=== PATIENT | male | born 1965 | race Caucasian/White ===

== ENCOUNTER 2017-08-22 20:40 | Inpatient (IN) ==
[2017-08-22] MEDS ORDERED: ACETAMINOPHEN 325 MG TABLET PO PRN (23:00)
[2017-08-22] MEDS ORDERED: GLUCAGON 1 MG VIAL IM PRN (23:36)
[2017-08-22] MEDS ORDERED: DEXTROSE 50% 25 GM/50 ML VIAL IV PRN (23:36)
[2017-08-22] MEDS ORDERED: MORPHINE 2 MG/1 ML SYRINGE IV PRN (23:36)
[2017-08-22] MEDS ORDERED: ONDANSETRON 4 MG/2 ML VIAL IV PRN (23:36)
[2017-08-22] MEDS ORDERED: NICOTINE 21 MG/24 HR PATCH TRANSDERM PRN (23:36)
[2017-08-22] MEDS ORDERED: ZALEPLON 5 MG CAPSULE PO PRN (23:36)
[2017-08-22] MEDS ORDERED: LEVOFLOXACIN INJ 750 MG in PREMIX 1 EACH IV SCH (23:45)
[2017-08-22] MEDS ORDERED: ALBUTEROL/IPRATROPIUM 3 ML NEB RESP TX PRN (23:46)
[2017-08-23] MEDS: SODIUM CHLORIDE 0.45% 1,000 ML IV SCH ×2 (00:12→15:07)
[2017-08-23 01:22] LABS: Basophils # 0.1 10*3/uL (0.0-0.2); Basophils % 0.6 % (0.0-0.8); Eosinophils # 0.2 10*3/uL (0.0-0.87); Eosinophils % 0.9 % (0.00-10.9); Hematocrit 33.9 VOL% (42.0-52.0); Hemoglobin 10.7 GM/DL (14.0-18.0); Immature Granulocytes % 0.6 %; Lymphocytes # 4.8 10*3/uL (1.4-4.0); Lymphocytes % 27.9 % (21.2-54.2); Mean Corpuscular HGB Conc 31.6 GM/DL (32-36); Mean Corpuscular Hemoglobin 27 PG (27-34); Mean Corpuscular Volume 85.8 FL (87-102); Mean Platelet Volume 10.4 FL (9.6-12.0); Monocytes # 2.9 10*3/uL (0.11-0.8); Monocytes % 16.7 % (1.7-12.7); NRBC # 0.15 10*3/uL; Neutrophils # 9.1 10*3/uL (1.4-7.4); Neutrophils % 53.3 % (38.7-73.9); Platelet Count 454 T/CUMM (130-400); Red Blood Count 3.95 MC/CUMM (3.8-5.5); Red Cell Distribution Width 17.3 % (9.3-17.3); White Blood Count 17.1 T/CUMM (4-12)
[2017-08-23 01:46] LABS: Albumin 2.8 G/DL (3.4-5.0); Calcium 8.1 MG/DL (8.5-10.1); Osmolality,Calculated 282.1 MOS/KG (273-304); Potassium 3.9 MMOL/L (3.5-5.1); Total Protein 7.2 G/DL (6.4-8.3)
[2017-08-23] MEDS: ALBUTEROL/IPRATROPIUM 3 ML NEB RESP TX SCH ×6 (02:12→23:40)
[2017-08-23 06:40] LABS: Lymphocytes 18 % (20-55); Platelet Estimate Increased; Segmented Neutrophils 72 % (50-85); Total Cells Counted 100
[2017-08-23 09:48] LABS: ABG Base Excess 4.7 MMOL/L (-2.5-2.5); ABG HCO3 28.6 MMOL/L (20-26); ABG Oxygen Saturation 92.5 % (95-100); ABG PCO2 58.6 MM HG (35-48); ABG PH 7.344 (7.35-7.45); ABG PO2 66.1 MM HG (80-95); ABG TCO2 29.1 MMOL/L (23-27)
[2017-08-23] MEDS: PARoxetine 20 MG TABLET PO SCH (10:11)
[2017-08-23] MEDS: amLODIPine 5 MG TABLET PO SCH (10:12)
[2017-08-23] MEDS: AMIODARONE 200 MG TABLET PO SCH ×2 (10:12→21:24)
[2017-08-23] MEDS: ASPIRIN EC 81 MG TABLET PO SCH (10:12)
[2017-08-23] MEDS: PIOGLITAZONE 15 MG TABLET PO SCH (10:12)
[2017-08-23] MEDS: FUROSEMIDE 40 MG/4 ML VIAL IV SCH (10:13)
[2017-08-23] MEDS: PANTOPRAZOLE 40 MG TABLET PO SCH (10:13)
[2017-08-23] MEDS: INSULIN REGULAR 100 UNIT/ML SUBCUT SCH ×4 (10:13→21:41)
[2017-08-23] MEDS: DOCUSATE SODIUM 100 MG CAPSULE PO SCH ×2 (10:13→21:24)
[2017-08-23] MEDS: METOPROLOL TARTRATE 25 MG TABLET PO SCH ×2 (10:13→21:25)
[2017-08-23] MEDS: BUDESONIDE/FORMOTEROL 160-4.5 INHALER 6 GM INH SCH ×2 (10:13→21:26)
[2017-08-23] MEDS: AZITHROMYCIN INJ 500 MG in SODIUM CHLORIDE 0.9% 250 ML IV SCH (12:37)
[2017-08-23] MEDS: PIPERACILLIN/TAZOBACTAM 3,375 MG in SODIUM CHLORIDE 0.9% 100 ML IV SCH ×2 (15:06→20:50)
[2017-08-23] MEDS: NICOTINE 21 MG/24 HR PATCH TRANSDERM SCH (16:46)
[2017-08-23] MEDS: methylPREDNISolone SOD SUC 40 MG/1 ML VIAL IV SCH (16:47)
[2017-08-23] MEDS: RIVAROXABAN 15 MG TABLET PO SCH (17:29)
[2017-08-23] MEDS: ATORVASTATIN 40 MG TABLET PO SCH (21:25)
[2017-08-24] MEDS: methylPREDNISolone SOD SUC 40 MG/1 ML VIAL IV SCH ×2 (03:26→16:08)
[2017-08-24] MEDS: PIPERACILLIN/TAZOBACTAM 3,375 MG in SODIUM CHLORIDE 0.9% 100 ML IV SCH ×3 (03:27→19:30)
[2017-08-24] MEDS: ALBUTEROL/IPRATROPIUM 3 ML NEB RESP TX SCH ×5 (04:30→20:08)
[2017-08-24 06:53] LABS: Basophils % 0.2 % (0.0-0.8); Hemoglobin 11.2 GM/DL (14.0-18.0); Immature Granulocytes % 0.4 %; Immature Granulocytes Absolute 0.04 #; Lymphocytes # 1.6 10*3/uL (1.4-4.0); Lymphocytes % 17.3 % (21.2-54.2); Mean Corpuscular HGB Conc 30.3 GM/DL (32-36); Mean Corpuscular Hemoglobin 26 PG (27-34); Mean Corpuscular Volume 87.1 FL (87-102); Mean Platelet Volume 10.6 FL (9.6-12.0); Monocytes # 0.6 10*3/uL (0.11-0.8); Monocytes % 6.9 % (1.7-12.7); NRBC # 0.25 10*3/uL; Neutrophils % 75.2 % (38.7-73.9); Platelet Count 478 T/CUMM (130-400); Red Blood Count 4.25 MC/CUMM (3.8-5.5); Red Cell Distribution Width 17.1 % (9.3-17.3); White Blood Count 9.3 T/CUMM (4-12)
[2017-08-24 07:18] LABS: Band Neutrophils 1 % (0-10); Lymphocytes 14 % (20-55); Nucleated Red Blood Cells 3 (0-5); Segmented Neutrophils 77 % (50-85); Total Cells Counted 100
[2017-08-24 07:19] LABS: Giant Platelets Few; Hypochromasia 1+; Ovalocytes Slight; Platelet Estimate Adequate
[2017-08-24 07:35] LABS: Calcium 8.2 MG/DL (8.5-10.1); Osmolality,Calculated 285.4 MOS/KG (273-304); Potassium 4.4 MMOL/L (3.5-5.1)
[2017-08-24] MEDS: PARoxetine 20 MG TABLET PO SCH (09:48)
[2017-08-24] MEDS: AMIODARONE 200 MG TABLET PO SCH ×2 (09:48→20:42)
[2017-08-24] MEDS: ASPIRIN EC 81 MG TABLET PO SCH (09:48)
[2017-08-24] MEDS: FUROSEMIDE 40 MG/4 ML VIAL IV SCH (09:49)
[2017-08-24] MEDS: DOCUSATE SODIUM 100 MG CAPSULE PO SCH ×2 (09:49→20:42)
[2017-08-24] MEDS: PANTOPRAZOLE 40 MG TABLET PO SCH (09:49)
[2017-08-24] MEDS: amLODIPine 5 MG TABLET PO SCH (09:49)
[2017-08-24] MEDS: PIOGLITAZONE 15 MG TABLET PO SCH (09:49)
[2017-08-24] MEDS: METOPROLOL TARTRATE 25 MG TABLET PO SCH ×2 (09:49→20:42)
[2017-08-24] MEDS: BUDESONIDE/FORMOTEROL 160-4.5 INHALER 6 GM INH SCH ×2 (09:50→20:44)
[2017-08-24] MEDS: NICOTINE 21 MG/24 HR PATCH TRANSDERM SCH (10:39)
[2017-08-24] MEDS: INSULIN REGULAR 100 UNIT/ML SUBCUT SCH ×4 (11:10→20:44)
[2017-08-24] MEDS: AZITHROMYCIN INJ 500 MG in SODIUM CHLORIDE 0.9% 250 ML IV SCH (16:06)
[2017-08-24] MEDS: RIVAROXABAN 15 MG TABLET PO SCH (16:08)
[2017-08-24] MEDS: ATORVASTATIN 40 MG TABLET PO SCH (20:42)
[2017-08-25] MEDS: ALBUTEROL/IPRATROPIUM 3 ML NEB RESP TX SCH ×6 (01:09→20:08)
[2017-08-25] MEDS: methylPREDNISolone SOD SUC 40 MG/1 ML VIAL IV SCH (02:15)
[2017-08-25] MEDS: PIPERACILLIN/TAZOBACTAM 3,375 MG in SODIUM CHLORIDE 0.9% 100 ML IV SCH ×3 (02:15→18:04)
[2017-08-25] MEDS: FUROSEMIDE 40 MG/4 ML VIAL IV SCH (09:07)
[2017-08-25] MEDS: INSULIN REGULAR 100 UNIT/ML SUBCUT SCH ×4 (09:07→20:53)
[2017-08-25] MEDS: NICOTINE 21 MG/24 HR PATCH TRANSDERM SCH (09:08)
[2017-08-25] MEDS: AMIODARONE 200 MG TABLET PO SCH ×2 (09:08→20:54)
[2017-08-25] MEDS: PARoxetine 20 MG TABLET PO SCH (09:09)
[2017-08-25] MEDS: PANTOPRAZOLE 40 MG TABLET PO SCH (09:09)
[2017-08-25] MEDS: amLODIPine 5 MG TABLET PO SCH (09:10)
[2017-08-25] MEDS: DOCUSATE SODIUM 100 MG CAPSULE PO SCH ×2 (09:10→20:54)
[2017-08-25] MEDS: BUDESONIDE/FORMOTEROL 160-4.5 INHALER 6 GM INH SCH ×2 (09:10→20:54)
[2017-08-25] MEDS: METOPROLOL TARTRATE 25 MG TABLET PO SCH ×2 (09:10→20:54)
[2017-08-25] MEDS: ASPIRIN EC 81 MG TABLET PO SCH (09:10)
[2017-08-25] MEDS: PIOGLITAZONE 15 MG TABLET PO SCH (09:10)
[2017-08-25] MEDS: AZITHROMYCIN INJ 500 MG in SODIUM CHLORIDE 0.9% 250 ML IV SCH (11:03)
[2017-08-25] MEDS: RIVAROXABAN 15 MG TABLET PO SCH (16:40)
[2017-08-25] MEDS: ATORVASTATIN 40 MG TABLET PO SCH (20:54)
[2017-08-26] MEDS: ALBUTEROL/IPRATROPIUM 3 ML NEB RESP TX SCH ×4 (00:37→11:17)
[2017-08-26] MEDS: PIPERACILLIN/TAZOBACTAM 3,375 MG in SODIUM CHLORIDE 0.9% 100 ML IV SCH ×2 (02:26→10:25)
[2017-08-26 06:13] LABS: Basophils % 0.2 % (0.0-0.8); Eosinophils % 0.1 % (0.00-10.9); Hematocrit 37.3 VOL% (42.0-52.0); Hemoglobin 11.5 GM/DL (14.0-18.0); Immature Granulocytes % 0.8 %; Immature Granulocytes Absolute 0.14 #; Lymphocytes # 4.6 10*3/uL (1.4-4.0); Lymphocytes % 27.7 % (21.2-54.2); Mean Corpuscular HGB Conc 30.8 GM/DL (32-36); Mean Corpuscular Hemoglobin 26 PG (27-34); Mean Corpuscular Volume 84.4 FL (87-102); Mean Platelet Volume 10.5 FL (9.6-12.0); Monocytes # 2.1 10*3/uL (0.11-0.8); Monocytes % 12.6 % (1.7-12.7); Neutrophils # 9.8 10*3/uL (1.4-7.4); Neutrophils % 58.6 % (38.7-73.9); Platelet Count 622 T/CUMM (130-400); Red Blood Count 4.42 MC/CUMM (3.8-5.5); Red Cell Distribution Width 17.2 % (9.3-17.3); White Blood Count 16.7 T/CUMM (4-12)
[2017-08-26 06:47] LABS: Calcium 8.2 MG/DL (8.5-10.1); Osmolality,Calculated 287.4 MOS/KG (273-304); Potassium 4.1 MMOL/L (3.5-5.1)
[2017-08-26] MEDS: INSULIN REGULAR 100 UNIT/ML SUBCUT SCH ×2 (07:48→11:11)
[2017-08-26] MEDS: PARoxetine 20 MG TABLET PO SCH (08:25)
[2017-08-26] MEDS: PIOGLITAZONE 15 MG TABLET PO SCH (08:25)
[2017-08-26] MEDS: ASPIRIN EC 81 MG TABLET PO SCH (08:26)
[2017-08-26] MEDS: PANTOPRAZOLE 40 MG TABLET PO SCH (08:26)
[2017-08-26] MEDS: AMIODARONE 200 MG TABLET PO SCH (08:26)
[2017-08-26] MEDS: amLODIPine 5 MG TABLET PO SCH (08:26)
[2017-08-26] MEDS: METOPROLOL TARTRATE 25 MG TABLET PO SCH (08:26)
[2017-08-26] MEDS: FUROSEMIDE 40 MG/4 ML VIAL IV SCH (08:26)
[2017-08-26] MEDS: NICOTINE 21 MG/24 HR PATCH TRANSDERM SCH (08:27)
[2017-08-26] MEDS: DOCUSATE SODIUM 100 MG CAPSULE PO SCH (08:27)
[2017-08-26] MEDS: BUDESONIDE/FORMOTEROL 160-4.5 INHALER 6 GM INH SCH (08:27)
[2017-08-26] MEDS ORDERED: methylPREDNISolone SOD SUC 40 MG/1 ML VIAL IV SCH (09:00)
[2017-08-26] MEDS: AZITHROMYCIN INJ 500 MG in SODIUM CHLORIDE 0.9% 250 ML IV SCH (09:45)
[2017-08-26 11:20] VITALS: BP 117/75
== END 2017-08-26 13:30 | disposition home or self-care (01) | DRG 193 ==
LOC: SUATTDRO 21:54 → N.5E 21:54
PROVIDERS: ADMIT Family Medicine; ATTEND Hospitalist

== ENCOUNTER 2021-03-26 20:22 | Inpatient (IN) ==
[2021-03-26] MEDS ORDERED: DILTIAZEM 50 MG/10 ML VIAL IV STA (21:15)
[2021-03-26 21:23] LABS: Basophils # 0.1 10*3/uL (0.0-0.2); Basophils % 1.1 % (0.0-0.8); Hemoglobin 13.8 GM/DL (14.0-18.0); Lymphocytes % 31.9 % (21.2-54.2); Mean Platelet Volume 10.1 FL (9.6-12.0); Red Blood Count 5.33 MC/CUMM (3.8-5.5)
[2021-03-26] MEDS ORDERED: FUROSEMIDE 40 MG/4 ML VIAL IV STA (21:46)
[2021-03-26 21:48] LABS: Bilirubin,Total 1.2 MG/DL (0.20-1.00); Calcium 8.1 MG/DL (8.5-10.1); Osmolality,Calculated 274.1 MOS/KG (273-304); Potassium 4.3 MMOL/L (3.5-5.1); Total Protein 7.6 G/DL (6.4-8.2)
[2021-03-26] MEDS ORDERED: ACETAMINOPHEN 500 MG TABLET ONE (21:48)
[2021-03-26 21:49] LABS: Eosinophils # 0.1 10*3/uL (0.0-0.87); Eosinophils % 1.2 % (0.00-10.9); Hematocrit 45.4 VOL% (42.0-52.0); Immature Granulocytes % 0.4 %; Immature Granulocytes Absolute 0.03 #; Lymphocytes # 2.4 10*3/uL (1.4-4.0); Mean Corpuscular HGB Conc 30.4 GM/DL (32-36); Mean Corpuscular Volume 85.2 FL (87-102); Monocytes % 15.2 % (1.7-12.7); NRBC # 0.07 10*3/uL; Neutrophils % 50.2 % (38.7-73.9); Platelet Count 417 T/CUMM (130-400); Red Cell Distribution Width 20.3 % (9.3-17.3); White Blood Count 7.6 T/CUMM (4-12)
[2021-03-26] MEDS ORDERED: ACETAMINOPHEN 500 MG TABLET PO STA (21:52)
[2021-03-26 21:57] LABS: INR 1.2; PT Patient Result 13.7 SECS (10.5-12.0)
[2021-03-26] MEDS ORDERED: ENOXAPARIN 30 MG/0.3 ML SYRINGE SUBCUT STA (23:05)
[2021-03-26] MEDS ORDERED: ENOXAPARIN 100 MG/ML SYRINGE SUBCUT ONE (23:07)
[2021-03-26] MEDS: DILTIAZEM INJ 100 MG in SODIUM CHLORIDE 0.9% 100 ML IV SCH (23:09)
[2021-03-26] MEDS ORDERED: ACETAMINOPHEN 325 MG TABLET PO PRN (23:28)
[2021-03-26] MEDS ORDERED: MAGNESIUM SULF RIDER 2 GM/50 ML PREMIX IV PRN (23:28)
[2021-03-26] MEDS ORDERED: MAGNESIUM SULF RIDER 4 GM/100 ML PREMIX IV PRN (23:28)
[2021-03-26 23:48] LABS: Ferritin 37.2 ng/mL (26-388)
[2021-03-27 02:35] LABS: Bacteria,Urine Occasional /HPF (Few); Bilirubin,Urine Negative (Negative); Blood, Urine Large mg/dL (Negative); Glucose,Urine (UA) Negative (Negative); Ketones,Urine Negative (Negative); Nitrite,Urine Negative (Negative); Protein,Urine 100 MG/DL; RBC,Urine 157 /HPF (0-4); Squamous Epithelial Cell,Urine Occasional /HPF (0-10); Urine Appearance CLOUDY (Clear); Urine Color Amber (Yellow); Urine Specific Gravity 1.033 (1.001-1.035); Urine Urobilinogen < 2.0 EU/DL (0.2-1.0)
[2021-03-27 06:43] LABS: Albumin 2.9 G/DL (3.4-5.0); Calcium 8.5 MG/DL (8.5-10.1); Risk Ratio 6.82; Total Protein 7.8 G/DL (6.4-8.2); VLDL Cholesterol 14.4 MG/DL
[2021-03-27 08:16] LABS: Barbiturates Screen,Urine Negative (Negative); Benzodiazepines Screen,Urine Negative (Negative); Cannabinoid Screen,Urine Negative (Negative); Opiate Screen,Urine Negative (Negative); Phencyclidine Screen,Urine Negative (Negative)
[2021-03-27] MEDS: PANTOPRAZOLE 40 MG TABLET PO SCH (08:42)
[2021-03-27] MEDS: POTASSIUM CHLORIDE 20 MEQ TABLET PO SCH (08:42)
[2021-03-27] MEDS: FUROSEMIDE 40 MG/4 ML VIAL IV SCH ×2 (08:42→16:02)
[2021-03-27] MEDS: ASPIRIN EC 81 MG TABLET PO SCH (08:42)
[2021-03-27] MEDS: PARoxetine 20 MG TABLET PO SCH (08:42)
[2021-03-27] MEDS: METOPROLOL SUCCINATE XL 100 MG TABLET PO SCH (08:48)
[2021-03-27] MEDS ORDERED: METOPROLOL SUCCINATE XL 50 MG TABLET PO SCH (09:00)
[2021-03-27] MEDS: ENOXAPARIN 120 MG/0.8 ML SYRINGE SUBCUT SCH ×2 (10:31→22:47)
[2021-03-27] MEDS: cefTRIAXone 1,000 MG in SODIUM CHLORIDE 0.9% 100 ML IV SCH (10:51)
[2021-03-27] MEDS: AZITHROMYCIN INJ 500 MG in SODIUM CHLORIDE 0.9% 250 ML IV SCH (11:29)
[2021-03-27] MEDS: ONDANSETRON 4 MG/2 ML VIAL IV PRN (12:09)
[2021-03-27] MEDS ORDERED: PROMETHAZINE INJ 12.5 MG in SODIUM CHLORIDE 0.9% 50 ML IV ONE (12:37)
[2021-03-27] MEDS: ATORVASTATIN 40 MG TABLET PO SCH (20:43)
[2021-03-28 05:54] LABS: Calcium 8.6 MG/DL (8.5-10.1); Potassium 4.9 MMOL/L (3.5-5.1)
[2021-03-28 06:03] LABS: Basophils # 0.1 10*3/uL (0.0-0.2); Basophils % 0.6 % (0.0-0.8); Eosinophils % 0.1 % (0.00-10.9); Hematocrit 46.1 VOL% (42.0-52.0); Hemoglobin 14.2 GM/DL (14.0-18.0); Immature Granulocytes % 0.6 %; Immature Granulocytes Absolute 0.05 #; Lymphocytes # 1.7 10*3/uL (1.4-4.0); Lymphocytes % 19.8 % (21.2-54.2); Mean Corpuscular HGB Conc 30.8 GM/DL (32-36); Mean Corpuscular Volume 86.2 FL (87-102); Mean Platelet Volume 10.6 FL (9.6-12.0); Monocytes % 15.5 % (1.7-12.7); NRBC # 0.09 10*3/uL; Neutrophils % 63.4 % (38.7-73.9); Platelet Count 374 T/CUMM (130-400); Red Blood Count 5.35 MC/CUMM (3.8-5.5); White Blood Count 8.5 T/CUMM (4-12)
[2021-03-28] MEDS: ASPIRIN EC 81 MG TABLET PO SCH (08:43)
[2021-03-28] MEDS: METOPROLOL SUCCINATE XL 100 MG TABLET PO SCH (08:43)
[2021-03-28] MEDS: PARoxetine 20 MG TABLET PO SCH (08:43)
[2021-03-28] MEDS: PANTOPRAZOLE 40 MG TABLET PO SCH (08:43)
[2021-03-28] MEDS: POTASSIUM CHLORIDE 20 MEQ TABLET PO SCH (08:43)
[2021-03-28] MEDS: FUROSEMIDE 40 MG/4 ML VIAL IV SCH (08:44)
[2021-03-28] MEDS: AZITHROMYCIN INJ 500 MG in SODIUM CHLORIDE 0.9% 250 ML IV SCH (08:47)
[2021-03-28] MEDS: cefTRIAXone 1,000 MG in SODIUM CHLORIDE 0.9% 100 ML IV SCH (08:48)
[2021-03-28] MEDS: DILTIAZEM INJ 100 MG in SODIUM CHLORIDE 0.9% 100 ML IV SCH (09:44)
[2021-03-28] MEDS: ENOXAPARIN 120 MG/0.8 ML SYRINGE SUBCUT SCH (10:00)
[2021-03-28] MEDS ORDERED: TEMAZEPAM 15 MG CAPSULE PO PRN (12:05)
[2021-03-28] MEDS: RIVAROXABAN 15 MG TABLET PO SCH (16:22)
[2021-03-28] MEDS: ATORVASTATIN 40 MG TABLET PO SCH (20:45)
[2021-03-29 04:42] LABS: Basophils # 0.1 10*3/uL (0.0-0.2); Basophils % 0.9 % (0.0-0.8); Eosinophils % 0.2 % (0.00-10.9); Hematocrit 45.1 VOL% (42.0-52.0); Hemoglobin 14.1 GM/DL (14.0-18.0); Immature Granulocytes % 0.2 %; Immature Granulocytes Absolute 0.02 #; Lymphocytes % 22.5 % (21.2-54.2); Mean Corpuscular HGB Conc 31.3 GM/DL (32-36); Mean Corpuscular Volume 85.4 FL (87-102); Mean Platelet Volume 10.3 FL (9.6-12.0); Monocytes % 15.5 % (1.7-12.7); NRBC # 0.19 10*3/uL; Neutrophils % 60.7 % (38.7-73.9); Platelet Count 342 T/CUMM (130-400); Red Blood Count 5.28 MC/CUMM (3.8-5.5); Red Cell Distribution Width 20.2 % (9.3-17.3); White Blood Count 8.9 T/CUMM (4-12)
[2021-03-29 05:15] LABS: Calcium 8.1 MG/DL (8.5-10.1); Osmolality,Calculated 283.2 MOS/KG (273-304); Potassium 4.9 MMOL/L (3.5-5.1)
[2021-03-29] MEDS: PARoxetine 20 MG TABLET PO SCH (08:20)
[2021-03-29] MEDS: METOPROLOL SUCCINATE XL 100 MG TABLET PO SCH (08:20)
[2021-03-29] MEDS: PANTOPRAZOLE 40 MG TABLET PO SCH (08:20)
[2021-03-29] MEDS: ASPIRIN EC 81 MG TABLET PO SCH (08:20)
[2021-03-29] MEDS: POTASSIUM CHLORIDE 20 MEQ TABLET PO SCH (08:21)
[2021-03-29] MEDS: cefTRIAXone 1,000 MG in SODIUM CHLORIDE 0.9% 100 ML IV SCH (08:27)
[2021-03-29] MEDS: FUROSEMIDE 40 MG/4 ML VIAL IV SCH (08:27)
[2021-03-29] MEDS: AZITHROMYCIN INJ 500 MG in SODIUM CHLORIDE 0.9% 250 ML IV SCH (08:58)
[2021-03-29] MEDS: DOBUTamine 500 MG/250 ML PREMIX IV SCH (10:41)
[2021-03-29] MEDS ORDERED: TEMAZEPAM 7.5 MG CAPSULE PO PRN (11:51)
[2021-03-29] MEDS: ALBUTEROL/IPRATROPIUM 3 ML NEB RESP TX SCH ×2 (14:24→20:24)
[2021-03-29] MEDS: RIVAROXABAN 15 MG TABLET PO SCH (16:37)
[2021-03-29] MEDS: ATORVASTATIN 40 MG TABLET PO SCH (20:38)
[2021-03-30] MEDS: ALBUTEROL/IPRATROPIUM 3 ML NEB RESP TX SCH ×4 (00:19→19:40)
[2021-03-30 05:37] LABS: Basophils # 0.1 10*3/uL (0.0-0.2); Basophils % 0.6 % (0.0-0.8); Eosinophils # 0.1 10*3/uL (0.0-0.87); Eosinophils % 1.5 % (0.00-10.9); Hematocrit 44.2 VOL% (42.0-52.0); Hemoglobin 13.4 GM/DL (14.0-18.0); Immature Granulocytes % 0.4 %; Immature Granulocytes Absolute 0.04 #; Lymphocytes # 1.8 10*3/uL (1.4-4.0); Lymphocytes % 19.9 % (21.2-54.2); Mean Corpuscular HGB Conc 30.3 GM/DL (32-36); Mean Corpuscular Volume 86.3 FL (87-102); Mean Platelet Volume 10.6 FL (9.6-12.0); Monocytes % 14.8 % (1.7-12.7); NRBC # 0.14 10*3/uL; Neutrophils % 62.8 % (38.7-73.9); Platelet Count 328 T/CUMM (130-400); Red Blood Count 5.12 MC/CUMM (3.8-5.5); Red Cell Distribution Width 19.9 % (9.3-17.3); White Blood Count 8.9 T/CUMM (4-12)
[2021-03-30 06:11] LABS: Osmolality,Calculated 285.7 MOS/KG (273-304); Potassium 3.8 MMOL/L (3.5-5.1)
[2021-03-30] MEDS: METOPROLOL SUCCINATE XL 100 MG TABLET PO SCH (09:03)
[2021-03-30] MEDS: ASPIRIN EC 81 MG TABLET PO SCH (09:03)
[2021-03-30] MEDS: PARoxetine 20 MG TABLET PO SCH (09:03)
[2021-03-30] MEDS: FUROSEMIDE 40 MG/4 ML VIAL IV SCH (09:03)
[2021-03-30] MEDS: PANTOPRAZOLE 40 MG TABLET PO SCH (09:03)
[2021-03-30] MEDS: cefTRIAXone 1,000 MG in SODIUM CHLORIDE 0.9% 100 ML IV SCH (09:04)
[2021-03-30] MEDS: DOBUTamine 500 MG/250 ML PREMIX IV SCH ×3 (09:19→23:28)
[2021-03-30] MEDS: ONDANSETRON 4 MG/2 ML VIAL IV PRN (09:19)
[2021-03-30] MEDS: AZITHROMYCIN INJ 500 MG in SODIUM CHLORIDE 0.9% 250 ML IV SCH (10:30)
[2021-03-30] MEDS: metOLazone 5 MG TABLET PO SCH (11:23)
[2021-03-30] MEDS: RIVAROXABAN 15 MG TABLET PO SCH (17:35)
[2021-03-30] MEDS: ATORVASTATIN 40 MG TABLET PO SCH (20:52)
[2021-03-31] MEDS: ALBUTEROL/IPRATROPIUM 3 ML NEB RESP TX SCH ×4 (01:18→19:20)
[2021-03-31 05:23] LABS: Basophils % 0.5 % (0.0-0.8); Eosinophils # 0.2 10*3/uL (0.0-0.87); Eosinophils % 1.7 % (0.00-10.9); Hematocrit 44.2 VOL% (42.0-52.0); Hemoglobin 13.5 GM/DL (14.0-18.0); Immature Granulocytes % 0.2 %; Immature Granulocytes Absolute 0.02 #; Lymphocytes # 1.7 10*3/uL (1.4-4.0); Lymphocytes % 19.4 % (21.2-54.2); Mean Corpuscular HGB Conc 30.5 GM/DL (32-36); Mean Corpuscular Volume 86.7 FL (87-102); Mean Platelet Volume 10.7 FL (9.6-12.0); Monocytes % 17.3 % (1.7-12.7); NRBC # 0.12 10*3/uL; Neutrophils % 60.9 % (38.7-73.9); Platelet Count 310 T/CUMM (130-400); Red Cell Distribution Width 20.1 % (9.3-17.3); White Blood Count 8.8 T/CUMM (4-12)
[2021-03-31 05:45] LABS: Calcium 7.9 MG/DL (8.5-10.1); Osmolality,Calculated 285.4 MOS/KG (273-304); Potassium 3.5 MMOL/L (3.5-5.1)
[2021-03-31 07:05] LABS: Eosinophils 1 % (0-10); Hypochromasia 2+; Lymphocytes 20 % (20-55); Nucleated Red Blood Cells 4 (0-5); Segmented Neutrophils 69 % (50-85); Target Cells Slight; Total Cells Counted 100
[2021-03-31 07:06] LABS: Anisocytosis 1+; Microcytosis 1+; Platelet Estimate Normal; Polychromasia Slight
[2021-03-31] MEDS: ASPIRIN EC 81 MG TABLET PO SCH (09:32)
[2021-03-31] MEDS: FUROSEMIDE 40 MG/4 ML VIAL IV SCH (09:32)
[2021-03-31] MEDS: METOPROLOL SUCCINATE XL 50 MG TABLET PO SCH (09:33)
[2021-03-31] MEDS: ONDANSETRON 4 MG/2 ML VIAL IV PRN ×2 (09:33→20:35)
[2021-03-31] MEDS: PARoxetine 20 MG TABLET PO SCH (09:33)
[2021-03-31] MEDS: PANTOPRAZOLE 40 MG TABLET PO SCH (09:33)
[2021-03-31] MEDS: cefTRIAXone 1,000 MG in SODIUM CHLORIDE 0.9% 100 ML IV SCH (09:33)
[2021-03-31] MEDS: metOLazone 5 MG TABLET PO SCH (09:33)
[2021-03-31] MEDS: AZITHROMYCIN INJ 500 MG in SODIUM CHLORIDE 0.9% 250 ML IV SCH (10:40)
[2021-03-31] MEDS ORDERED: POTASSIUM CHLORIDE 10 MEQ TABLET PO ONE (10:49)
[2021-03-31] MEDS: DOBUTamine 500 MG/250 ML PREMIX IV SCH (13:07)
[2021-03-31] MEDS: RIVAROXABAN 15 MG TABLET PO SCH (17:41)
[2021-03-31] MEDS: ATORVASTATIN 40 MG TABLET PO SCH (20:32)
[2021-03-31] MEDS: ASCORBIC ACID 500 MG TABLET PO SCH (20:32)
[2021-04-01] MEDS: DOBUTamine 500 MG/250 ML PREMIX IV SCH (03:19)
[2021-04-01 05:23] LABS: Basophils # 0.1 10*3/uL (0.0-0.2); Basophils % 0.5 % (0.0-0.8); Eosinophils # 0.3 10*3/uL (0.0-0.87); Eosinophils % 2.6 % (0.00-10.9); Hematocrit 44.9 VOL% (42.0-52.0); Immature Granulocytes % 0.3 %; Immature Granulocytes Absolute 0.03 #; Lymphocytes # 2.3 10*3/uL (1.4-4.0); Lymphocytes % 24.2 % (21.2-54.2); Mean Corpuscular HGB Conc 31.2 GM/DL (32-36); Mean Corpuscular Volume 84.4 FL (87-102); Mean Platelet Volume 10.8 FL (9.6-12.0); Monocytes % 17.4 % (1.7-12.7); NRBC # 0.18 10*3/uL; Platelet Count 334 T/CUMM (130-400); Red Blood Count 5.32 MC/CUMM (3.8-5.5); Red Cell Distribution Width 19.9 % (9.3-17.3); White Blood Count 9.5 T/CUMM (4-12)
[2021-04-01 05:54] LABS: Lymphocytes 24 % (20-55); Platelet Estimate Adequate; Segmented Neutrophils 63 % (50-85); Target Cells Few; Total Cells Counted 100
[2021-04-01 05:55] LABS: Calcium 8.4 MG/DL (8.5-10.1); Osmolality,Calculated 279.5 MOS/KG (273-304); Potassium 3.5 MMOL/L (3.5-5.1)
[2021-04-01] MEDS: ALBUTEROL/IPRATROPIUM 3 ML NEB RESP TX SCH ×4 (07:18→20:09)
[2021-04-01] MEDS ORDERED: FUROSEMIDE 40 MG TABLET PO SCH (08:00)
[2021-04-01] MEDS: FUROSEMIDE 40 MG TABLET PO SCH (09:02)
[2021-04-01] MEDS: PARoxetine 20 MG TABLET PO SCH (09:05)
[2021-04-01] MEDS: ASCORBIC ACID 500 MG TABLET PO SCH ×2 (09:05→20:55)
[2021-04-01] MEDS: ASPIRIN EC 81 MG TABLET PO SCH (09:05)
[2021-04-01] MEDS: cefTRIAXone 1,000 MG in SODIUM CHLORIDE 0.9% 100 ML IV SCH (09:06)
[2021-04-01] MEDS: PANTOPRAZOLE 40 MG TABLET PO SCH (09:06)
[2021-04-01] MEDS: AZITHROMYCIN INJ 500 MG in SODIUM CHLORIDE 0.9% 250 ML IV SCH (09:44)
[2021-04-01] MEDS: METOPROLOL SUCCINATE XL 50 MG TABLET PO SCH (09:45)
[2021-04-01] MEDS ORDERED: POTASSIUM CHLORIDE 20 MEQ TABLET PO ONE (11:09)
[2021-04-01] MEDS ORDERED: MAGNESIUM SULF RIDER 2 GM/50 ML PREMIX IV ONE (11:09)
[2021-04-01] MEDS: RIVAROXABAN 15 MG TABLET PO SCH (18:17)
[2021-04-01] MEDS: ATORVASTATIN 40 MG TABLET PO SCH (20:55)
[2021-04-02] MEDS: ALBUTEROL/IPRATROPIUM 3 ML NEB RESP TX SCH ×2 (00:17→07:03)
[2021-04-02 05:58] LABS: Basophils # 0.1 10*3/uL (0.0-0.2); Basophils % 0.9 % (0.0-0.8); Eosinophils # 0.4 10*3/uL (0.0-0.87); Eosinophils % 4.3 % (0.00-10.9); Hematocrit 46.5 VOL% (42.0-52.0); Hemoglobin 14.2 GM/DL (14.0-18.0); Immature Granulocytes % 0.3 %; Immature Granulocytes Absolute 0.03 #; Lymphocytes # 2.7 10*3/uL (1.4-4.0); Lymphocytes % 26.6 % (21.2-54.2); Mean Corpuscular HGB Conc 30.5 GM/DL (32-36); Mean Corpuscular Volume 84.2 FL (87-102); Mean Platelet Volume 10.5 FL (9.6-12.0); Monocytes % 17.8 % (1.7-12.7); NRBC # 0.23 10*3/uL; Neutrophils % 50.1 % (38.7-73.9); Platelet Count 323 T/CUMM (130-400); Red Blood Count 5.52 MC/CUMM (3.8-5.5); Red Cell Distribution Width 20.2 % (9.3-17.3); White Blood Count 10.2 T/CUMM (4-12)
[2021-04-02 06:24] LABS: Eosinophils 4 % (0-10); Lymphocytes 33 % (20-55); Nucleated Red Blood Cells 2 (0-5); Platelet Estimate Adequate; Segmented Neutrophils 48 % (50-85); Total Cells Counted 100
[2021-04-02 06:46] LABS: Calcium 8.7 MG/DL (8.5-10.1); Osmolality,Calculated 276.7 MOS/KG (273-304); Potassium 3.6 MMOL/L (3.5-5.1)
[2021-04-02] MEDS: ASPIRIN EC 81 MG TABLET PO SCH (09:28)
[2021-04-02] MEDS: FUROSEMIDE 40 MG TABLET PO SCH (09:28)
[2021-04-02] MEDS: METOPROLOL SUCCINATE XL 50 MG TABLET PO SCH (09:29)
[2021-04-02] MEDS: PANTOPRAZOLE 40 MG TABLET PO SCH (09:29)
[2021-04-02] MEDS: ASCORBIC ACID 500 MG TABLET PO SCH (09:29)
[2021-04-02] MEDS: PARoxetine 20 MG TABLET PO SCH (09:29)
[2021-04-02] MEDS: cefTRIAXone 1,000 MG in SODIUM CHLORIDE 0.9% 100 ML IV SCH (09:29)
[2021-04-02] MEDS: AZITHROMYCIN INJ 500 MG in SODIUM CHLORIDE 0.9% 250 ML IV SCH (10:18)
[2021-04-02 12:01] VITALS: BP 108/76
== END 2021-04-02 13:24 | disposition home or self-care (01) | DRG 291 ==
LOC: N.ED 20:22 → SUATTDRO 03-27 00:52 → N.EDINP 03-27 00:52 → N.TELEN 03-27 02:30
PROVIDERS: ADMIT Internal Medicine; ATTEND Internal Medicine

== ENCOUNTER 2022-03-13 20:50 | Inpatient (IN) ==
[2022-03-13 22:01] LABS: RBC,Urine 5042 /HPF (0-4)
[2022-03-13 22:02] LABS: Bilirubin,Urine Moderate mg/dL (Negative); Blood, Urine Moderate mg/dL (Negative); Glucose,Urine (UA) Negative (Negative); Ketones,Urine Trace mg/dL (Negative); Nitrite,Urine Negative (Negative); Protein,Urine >=300 mg/dL (Negative); Urine Appearance Slightly Cloudy (Clear); Urine Color Brown (Yellow); Urine Specific Gravity 1.025 (1.001-1.035)
[2022-03-14] MEDS ORDERED: LEVOFLOXACIN INJ 500 MG/100 ML PREMIX IV ONE (00:09)
[2022-03-14] MEDS ORDERED: SODIUM CHLORIDE 0.9% 1,000 ML IV STA (00:09)
[2022-03-14 00:23] LABS: Albumin 2.9 G/DL (3.4-5.0); Bilirubin,Total 0.4 MG/DL (0.20-1.00); Osmolality,Calculated 287.3 MOS/KG (273-304); Potassium 2.9 MMOL/L (3.5-5.1); Total Protein 7.4 G/DL (6.4-8.2)
[2022-03-14 00:42] LABS: Basophils # 0.1 10*3/uL (0.0-0.2); Basophils % 1.3 % (0.0-0.8); Hemoglobin 16.7 GM/DL (14.0-18.0); Immature Granulocytes % 0.6 %; Immature Granulocytes Absolute 0.06 #; Lymphocytes # 4.8 10*3/uL (1.4-4.0); Lymphocytes % 44.4 % (21.2-54.2); Mean Corpuscular HGB Conc 33.4 GM/DL (32-36); Mean Corpuscular Volume 100.6 FL (87-102); Mean Platelet Volume 10.3 FL (9.6-12.0); Monocytes # 1.4 10*3/uL (0.11-0.8); Monocytes % 12.9 % (1.7-12.7); Neutrophils % 31.8 % (38.7-73.9); Platelet Count 291 T/CUMM (130-400); Red Blood Count 4.97 MC/CUMM (3.8-5.5); Red Cell Distribution Width 15.3 % (9.3-17.3); White Blood Count 10.8 T/CUMM (4-12)
[2022-03-14] MEDS ORDERED: ONDANSETRON 4 MG/2 ML VIAL IV ONE (00:48)
[2022-03-14] MEDS ORDERED: MORPHINE 2 MG/1 ML SYRINGE IV STA (00:48)
[2022-03-14] MEDS ORDERED: POTASSIUM CHLORIDE 20 MEQ TABLET PO STA (01:02)
[2022-03-14 01:09] LABS: Atypical Lymphocytes 1+; Eosinophils 8 % (0-10); Lymphocytes 48 % (20-55); Platelet Estimate Normal; Total Cells Counted 100
[2022-03-14 01:10] LABS: Polychromasia Slight
[2022-03-14] MEDS ORDERED: GLUCAGON 1 MG VIAL IM PRN (01:10)
[2022-03-14] MEDS ORDERED: ACETAMINOPHEN 325 MG TABLET PO PRN (01:10)
[2022-03-14] MEDS ORDERED: SIMETHICONE CHEW 125 MG TABLET PO PRN (01:10)
[2022-03-14 01:11] LABS: Macrocytosis 1+; Target Cells Few
[2022-03-14] MEDS ORDERED: DEXTROSE 10% 250 ML BAG IV PRN (01:21)
[2022-03-14] MEDS ORDERED: PROMETHAZINE 25 MG/1 ML VIAL ONE (01:33)
[2022-03-14] MEDS ORDERED: HYDROmorphone 1 MG/1 ML SYRINGE ONE (01:33)
[2022-03-14] MEDS ORDERED: HYDROmorphone 1 MG/1 ML SYRINGE IV STA (01:37)
[2022-03-14] MEDS ORDERED: PROMETHAZINE 25 MG/1 ML VIAL IM STA (01:38)
[2022-03-14] MEDS ORDERED: POTASSIUM CHLORIDE 20 MEQ TABLET PO PRN (03:17)
[2022-03-14] MEDS ORDERED: POTASSIUM CHLORIDE RIDER 10 MEQ/100 ML PREMIX IV PRN (03:17)
[2022-03-14] MEDS ORDERED: MAGNESIUM SULF RIDER 4 GM/100 ML PREMIX IV PRN (03:17)
[2022-03-14] MEDS ORDERED: MAGNESIUM SULF RIDER 2 GM/50 ML PREMIX IV PRN (03:17)
[2022-03-14] MEDS: HYDROmorphone 1 MG/1 ML SYRINGE IV PRN (04:28)
[2022-03-14] MEDS: ONDANSETRON 4 MG/2 ML VIAL IV PRN ×2 (04:29→09:50)
[2022-03-14 05:40] LABS: Calcium 8.6 MG/DL (8.5-10.1); Osmolality,Calculated 289.3 MOS/KG (273-304)
[2022-03-14] MEDS: PROMETHAZINE 25 MG TABLET PO PRN (05:52)
[2022-03-14] MEDS: DOCUSATE SODIUM 100 MG CAPSULE PO SCH ×2 (09:55→20:44)
[2022-03-14] MEDS: POTASSIUM CHLORIDE 20 MEQ TABLET PO SCH (09:55)
[2022-03-14] MEDS: PARoxetine 20 MG TABLET PO SCH (09:56)
[2022-03-14] MEDS: PANTOPRAZOLE 40 MG TABLET PO SCH (09:56)
[2022-03-14] MEDS: INSULIN REGULAR 100 UNIT/ML SUBCUT SCH ×4 (09:58→20:45)
[2022-03-14] MEDS: buPROPion XL 150 MG TABLET PO SCH (09:59)
[2022-03-14] MEDS: METOPROLOL SUCCINATE XL 25 MG TABLET PO SCH (10:54)
[2022-03-14] MEDS: SACUBITRIL/VALSARTAN 49-51 MG TABLET PO SCH ×2 (10:54→20:44)
[2022-03-14] MEDS: metOLazone 5 MG TABLET PO SCH (10:54)
[2022-03-14] MEDS ORDERED: SODIUM CHLORIDE 0.9% 250 ML IV ONE ×2 (11:27→16:00)
[2022-03-14] MEDS: SODIUM CHLORIDE 0.9% 1,000 ML IV SCH (11:50)
[2022-03-14] MEDS ORDERED: POTASSIUM CHLORIDE 20 MEQ TABLET PO ONE (13:58)
[2022-03-14] MEDS: RIVAROXABAN 15 MG TABLET PO SCH (16:47)
[2022-03-14] MEDS: ATORVASTATIN 40 MG TABLET PO SCH (20:45)
[2022-03-15] MEDS: SODIUM CHLORIDE 0.9% 1,000 ML IV SCH (02:07)
[2022-03-15] MEDS ORDERED: LEVOFLOXACIN INJ 750 MG/150 ML PREMIX IV SCH (03:00)
[2022-03-15] MEDS: PROMETHAZINE 25 MG TABLET PO PRN ×2 (04:30→20:32)
[2022-03-15 05:27] LABS: Phosphorous 2.3 MG/DL (2.5-4.9); Uric Acid 8.4 MG/DL (3.5-7.2)
[2022-03-15] MEDS ORDERED: POTASSIUM CHLORIDE 20 MEQ TABLET PO ONE (08:15)
[2022-03-15] MEDS: DOCUSATE SODIUM 100 MG CAPSULE PO SCH ×2 (08:37→20:32)
[2022-03-15] MEDS: PARoxetine 20 MG TABLET PO SCH (08:37)
[2022-03-15] MEDS: PANTOPRAZOLE 40 MG TABLET PO SCH (08:37)
[2022-03-15] MEDS: buPROPion XL 150 MG TABLET PO SCH (08:38)
[2022-03-15] MEDS: SACUBITRIL/VALSARTAN 49-51 MG TABLET PO SCH ×2 (08:40→20:38)
[2022-03-15] MEDS: POTASSIUM CHLORIDE 20 MEQ TABLET PO SCH (08:40)
[2022-03-15] MEDS: metOLazone 5 MG TABLET PO SCH (08:40)
[2022-03-15] MEDS: METOPROLOL SUCCINATE XL 25 MG TABLET PO SCH (08:40)
[2022-03-15] MEDS: INSULIN REGULAR 100 UNIT/ML SUBCUT SCH ×4 (08:49→22:46)
[2022-03-15] MEDS: HYDROmorphone 1 MG/1 ML SYRINGE IV PRN ×2 (08:50→16:42)
[2022-03-15] MEDS: ONDANSETRON 4 MG/2 ML VIAL IV PRN ×2 (08:51→16:43)
[2022-03-15 09:06] LABS: Calcium 8.4 MG/DL (8.5-10.1); Osmolality,Calculated 293.6 MOS/KG (273-304); Potassium 3.8 MMOL/L (3.5-5.1)
[2022-03-15] MEDS: SODIUM CHLORIDE 0.45% 1,000 ML IV SCH (11:16)
[2022-03-15] MEDS: RIVAROXABAN 15 MG TABLET PO SCH (16:41)
[2022-03-15] MEDS: cefTRIAXone 1,000 MG in SODIUM CHLORIDE 0.9% 100 ML IV SCH (20:31)
[2022-03-15] MEDS: ATORVASTATIN 40 MG TABLET PO SCH (20:33)
[2022-03-16] MEDS: HYDROmorphone 1 MG/1 ML SYRINGE IV PRN ×4 (00:32→16:16)
[2022-03-16] MEDS: ONDANSETRON 4 MG/2 ML VIAL IV PRN ×2 (00:32→08:39)
[2022-03-16] MEDS: SODIUM CHLORIDE 0.45% 1,000 ML IV SCH ×2 (00:33→16:24)
[2022-03-16] MEDS: PROMETHAZINE 25 MG TABLET PO PRN ×3 (04:32→21:34)
[2022-03-16 05:13] LABS: Basophils # 0.2 10*3/uL (0.0-0.2); Basophils % 1.5 % (0.0-0.8); Eosinophils # 0.7 10*3/uL (0.0-0.87); Eosinophils % 7.2 % (0.00-10.9); Hemoglobin 16.2 GM/DL (14.0-18.0); Immature Granulocytes % 0.2 %; Immature Granulocytes Absolute 0.02 #; Lymphocytes # 3.8 10*3/uL (1.4-4.0); Lymphocytes % 38.8 % (21.2-54.2); Mean Corpuscular HGB Conc 32.4 GM/DL (32-36); Mean Corpuscular Volume 104.8 FL (87-102); Mean Platelet Volume 9.8 FL (9.6-12.0); Monocytes # 1.2 10*3/uL (0.11-0.8); Monocytes % 11.8 % (1.7-12.7); Neutrophils % 40.5 % (38.7-73.9); Platelet Count 290 T/CUMM (130-400); Red Blood Count 4.77 MC/CUMM (3.8-5.5); Red Cell Distribution Width 15.9 % (9.3-17.3); White Blood Count 9.8 T/CUMM (4-12)
[2022-03-16 05:49] LABS: Calcium 8.3 MG/DL (8.5-10.1); Osmolality,Calculated 291.8 MOS/KG (273-304); Potassium 3.5 MMOL/L (3.5-5.1)
[2022-03-16] MEDS: PARoxetine 20 MG TABLET PO SCH (08:36)
[2022-03-16] MEDS: POTASSIUM CHLORIDE 20 MEQ TABLET PO SCH (08:37)
[2022-03-16] MEDS: DOCUSATE SODIUM 100 MG CAPSULE PO SCH ×2 (08:37→21:35)
[2022-03-16] MEDS: PANTOPRAZOLE 40 MG TABLET PO SCH (08:37)
[2022-03-16] MEDS: buPROPion XL 150 MG TABLET PO SCH (08:37)
[2022-03-16] MEDS: METOPROLOL SUCCINATE XL 25 MG TABLET PO SCH (08:37)
[2022-03-16] MEDS: SACUBITRIL/VALSARTAN 49-51 MG TABLET PO SCH (08:39)
[2022-03-16] MEDS: INSULIN REGULAR 100 UNIT/ML SUBCUT SCH ×4 (08:51→21:32)
[2022-03-16] MEDS ORDERED: LIDOCAINE 2% TOP JELLY 20 ML VIAL INTRAURETH ONE (13:25)
[2022-03-16 14:48] LABS: Protein/Creatinine Ratio,Urine 1.5 RATIO
[2022-03-16] MEDS: cefTRIAXone 1,000 MG in SODIUM CHLORIDE 0.9% 100 ML IV SCH (21:33)
[2022-03-16] MEDS: ATORVASTATIN 40 MG TABLET PO SCH (21:34)
[2022-03-17] MEDS: SODIUM CHLORIDE 0.45% 1,000 ML IV SCH ×2 (04:16→15:28)
[2022-03-17] MEDS: PROMETHAZINE 25 MG TABLET PO PRN ×3 (04:25→15:43)
[2022-03-17 05:14] LABS: Basophils # 0.2 10*3/uL (0.0-0.2); Basophils % 1.2 % (0.0-0.8); Eosinophils # 0.7 10*3/uL (0.0-0.87); Eosinophils % 5.4 % (0.00-10.9); Hematocrit 50.7 VOL% (42.0-52.0); Hemoglobin 16.6 GM/DL (14.0-18.0); Immature Granulocytes % 0.3 %; Immature Granulocytes Absolute 0.04 #; Lymphocytes # 4.5 10*3/uL (1.4-4.0); Mean Corpuscular HGB Conc 32.7 GM/DL (32-36); Mean Corpuscular Volume 103.3 FL (87-102); Mean Platelet Volume 9.8 FL (9.6-12.0); Monocytes # 1.3 10*3/uL (0.11-0.8); Monocytes % 11.1 % (1.7-12.7); Platelet Count 326 T/CUMM (130-400); Red Blood Count 4.91 MC/CUMM (3.8-5.5); Red Cell Distribution Width 15.9 % (9.3-17.3); White Blood Count 12.1 T/CUMM (4-12)
[2022-03-17 05:40] LABS: Calcium 8.9 MG/DL (8.5-10.1); Eosinophils 7 % (0-10); Lymphocytes 44 % (20-55); Platelet Estimate Adequate; Potassium 3.7 MMOL/L (3.5-5.1); Total Cells Counted 100
[2022-03-17 05:41] LABS: Atypical Lymphocytes Few
[2022-03-17] MEDS: INSULIN REGULAR 100 UNIT/ML SUBCUT SCH ×4 (07:17→21:42)
[2022-03-17] MEDS: DOCUSATE SODIUM 100 MG CAPSULE PO SCH ×2 (08:17→20:00)
[2022-03-17] MEDS: buPROPion XL 150 MG TABLET PO SCH (08:17)
[2022-03-17] MEDS: POTASSIUM CHLORIDE 20 MEQ TABLET PO SCH (08:17)
[2022-03-17] MEDS: METOPROLOL SUCCINATE XL 25 MG TABLET PO SCH (08:17)
[2022-03-17] MEDS: PANTOPRAZOLE 40 MG TABLET PO SCH (08:18)
[2022-03-17] MEDS: PARoxetine 20 MG TABLET PO SCH (08:18)
[2022-03-17] MEDS: ATORVASTATIN 40 MG TABLET PO SCH (20:00)
[2022-03-17] MEDS: ONDANSETRON 4 MG/2 ML VIAL IV PRN (20:00)
[2022-03-17] MEDS: cefTRIAXone 1,000 MG in SODIUM CHLORIDE 0.9% 100 ML IV SCH (20:00)
[2022-03-18] MEDS: PROMETHAZINE 25 MG TABLET PO PRN (03:57)
[2022-03-18] MEDS: SODIUM CHLORIDE 0.45% 1,000 ML IV SCH ×2 (04:00→18:07)
[2022-03-18 04:49] LABS: Basophils # 0.2 10*3/uL (0.0-0.2); Basophils % 1.6 % (0.0-0.8); Eosinophils # 0.8 10*3/uL (0.0-0.87); Eosinophils % 7.1 % (0.00-10.9); Hematocrit 51.2 VOL% (42.0-52.0); Hemoglobin 16.8 GM/DL (14.0-18.0); Immature Granulocytes % 0.3 %; Immature Granulocytes Absolute 0.03 #; Lymphocytes # 3.5 10*3/uL (1.4-4.0); Lymphocytes % 33.1 % (21.2-54.2); Mean Corpuscular HGB Conc 32.8 GM/DL (32-36); Mean Corpuscular Volume 101.6 FL (87-102); Mean Platelet Volume 9.9 FL (9.6-12.0); Monocytes # 1.1 10*3/uL (0.11-0.8); Monocytes % 10.4 % (1.7-12.7); Neutrophils % 47.5 % (38.7-73.9); Platelet Count 345 T/CUMM (130-400); Red Blood Count 5.04 MC/CUMM (3.8-5.5); Red Cell Distribution Width 15.5 % (9.3-17.3); White Blood Count 10.7 T/CUMM (4-12)
[2022-03-18 05:04] LABS: Calcium 8.4 MG/DL (8.5-10.1); Osmolality,Calculated 292.8 MOS/KG (273-304); Potassium 3.5 MMOL/L (3.5-5.1)
[2022-03-18] MEDS: HYDROmorphone 1 MG/1 ML SYRINGE IV PRN ×2 (07:50→20:25)
[2022-03-18] MEDS: INSULIN REGULAR 100 UNIT/ML SUBCUT SCH ×4 (07:53→20:29)
[2022-03-18] MEDS: POTASSIUM CHLORIDE 20 MEQ TABLET PO SCH (08:44)
[2022-03-18] MEDS: DOCUSATE SODIUM 100 MG CAPSULE PO SCH ×2 (08:44→20:31)
[2022-03-18] MEDS: PARoxetine 20 MG TABLET PO SCH (08:44)
[2022-03-18] MEDS: METOPROLOL SUCCINATE XL 25 MG TABLET PO SCH (08:45)
[2022-03-18] MEDS: buPROPion XL 150 MG TABLET PO SCH (08:45)
[2022-03-18] MEDS: PANTOPRAZOLE 40 MG TABLET PO SCH (08:45)
[2022-03-18 10:09] LABS: Protein/Creatinine Ratio,Urine 0.4 RATIO
[2022-03-18 11:45] LABS: INR 1.1; PT Patient Result 11.8 SECS (10.1-12.1)
[2022-03-18] MEDS ORDERED: fentaNYL 100 MCG/2 ML VIAL IV ONE (12:15)
[2022-03-18] MEDS ORDERED: MIDAZOLAM 2 MG/2 ML VIAL IV ONE (12:15)
[2022-03-18 13:29] LABS: Basophils # 0.1 10*3/uL (0.0-0.2); Basophils % 1.3 % (0.0-0.8); Eosinophils # 0.6 10*3/uL (0.0-0.87); Eosinophils % 5.3 % (0.00-10.9); Hematocrit 51.6 VOL% (42.0-52.0); Hemoglobin 17.2 GM/DL (14.0-18.0); Immature Granulocytes % 0.2 %; Immature Granulocytes Absolute 0.02 #; Lymphocytes # 3.4 10*3/uL (1.4-4.0); Lymphocytes % 32.8 % (21.2-54.2); Mean Corpuscular HGB Conc 33.3 GM/DL (32-36); Mean Corpuscular Volume 101.6 FL (87-102); Mean Platelet Volume 9.3 FL (9.6-12.0); Monocytes % 9.8 % (1.7-12.7); Neutrophils % 50.6 % (38.7-73.9); Platelet Count 344 T/CUMM (130-400); Red Blood Count 5.08 MC/CUMM (3.8-5.5); Red Cell Distribution Width 15.5 % (9.3-17.3); White Blood Count 10.3 T/CUMM (4-12)
[2022-03-18] MEDS ORDERED: DIAZEPAM 5 MG TABLET PO ONE (13:30)
[2022-03-18 13:34] LABS: Calcium 8.9 MG/DL (8.5-10.1); Osmolality,Calculated 284.1 MOS/KG (273-304); Potassium 4.2 MMOL/L (3.5-5.1)
[2022-03-18] MEDS: cefTRIAXone 1,000 MG in SODIUM CHLORIDE 0.9% 100 ML IV SCH (20:28)
[2022-03-18] MEDS: ATORVASTATIN 40 MG TABLET PO SCH (20:31)
[2022-03-19] MEDS: HYDROmorphone 1 MG/1 ML SYRINGE IV PRN ×5 (00:53→21:09)
[2022-03-19] MEDS: ONDANSETRON 4 MG/2 ML VIAL IV PRN ×5 (00:54→21:14)
[2022-03-19] MEDS: SODIUM CHLORIDE 0.45% 1,000 ML IV SCH ×2 (04:23→19:02)
[2022-03-19 05:25] LABS: Basophils # 0.1 10*3/uL (0.0-0.2); Eosinophils # 0.5 10*3/uL (0.0-0.87); Eosinophils % 4.7 % (0.00-10.9); Hematocrit 50.1 VOL% (42.0-52.0); Hemoglobin 16.6 GM/DL (14.0-18.0); Immature Granulocytes % 0.3 %; Immature Granulocytes Absolute 0.03 #; Lymphocytes # 3.4 10*3/uL (1.4-4.0); Lymphocytes % 29.8 % (21.2-54.2); Mean Corpuscular HGB Conc 33.1 GM/DL (32-36); Mean Corpuscular Volume 101.8 FL (87-102); Mean Platelet Volume 9.8 FL (9.6-12.0); Monocytes # 1.4 10*3/uL (0.11-0.8); Neutrophils % 52.2 % (38.7-73.9); Platelet Count 355 T/CUMM (130-400); Red Blood Count 4.92 MC/CUMM (3.8-5.5); Red Cell Distribution Width 15.5 % (9.3-17.3); White Blood Count 11.5 T/CUMM (4-12)
[2022-03-19 05:56] LABS: Calcium 8.8 MG/DL (8.5-10.1); Osmolality,Calculated 286.1 MOS/KG (273-304); Potassium 4.1 MMOL/L (3.5-5.1)
[2022-03-19] MEDS ORDERED: cefTRIAXone 1,000 MG in SODIUM CHLORIDE 0.9% 100 ML IV ONE (07:00)
[2022-03-19] MEDS: buPROPion XL 150 MG TABLET PO SCH (09:21)
[2022-03-19] MEDS: PARoxetine 20 MG TABLET PO SCH (09:21)
[2022-03-19] MEDS: METOPROLOL SUCCINATE XL 25 MG TABLET PO SCH (09:21)
[2022-03-19] MEDS: PANTOPRAZOLE 40 MG TABLET PO SCH (09:23)
[2022-03-19] MEDS: POTASSIUM CHLORIDE 20 MEQ TABLET PO SCH (09:23)
[2022-03-19] MEDS: DOCUSATE SODIUM 100 MG CAPSULE PO SCH ×2 (09:23→21:06)
[2022-03-19] MEDS: INSULIN REGULAR 100 UNIT/ML SUBCUT SCH ×4 (09:25→21:06)
[2022-03-19] MEDS: PROMETHAZINE 25 MG TABLET PO PRN (18:12)
[2022-03-19] MEDS: cefTRIAXone 1,000 MG in SODIUM CHLORIDE 0.9% 100 ML IV SCH (21:05)
[2022-03-19] MEDS: ATORVASTATIN 40 MG TABLET PO SCH (21:06)
[2022-03-20] MEDS: PROMETHAZINE 25 MG TABLET PO PRN ×2 (00:15→09:19)
[2022-03-20] MEDS: HYDROmorphone 1 MG/1 ML SYRINGE IV PRN ×5 (00:16→16:57)
[2022-03-20] MEDS: ONDANSETRON 4 MG/2 ML VIAL IV PRN ×2 (04:58→16:58)
[2022-03-20 05:55] LABS: Basophils # 0.1 10*3/uL (0.0-0.2); Basophils % 1.1 % (0.0-0.8); Eosinophils # 0.5 10*3/uL (0.0-0.87); Eosinophils % 4.4 % (0.00-10.9); Hematocrit 48.5 VOL% (42.0-52.0); Hemoglobin 15.7 GM/DL (14.0-18.0); Immature Granulocytes % 0.4 %; Immature Granulocytes Absolute 0.05 #; Lymphocytes # 3.5 10*3/uL (1.4-4.0); Lymphocytes % 30.9 % (21.2-54.2); Mean Corpuscular HGB Conc 32.4 GM/DL (32-36); Mean Corpuscular Volume 104.3 FL (87-102); Monocytes # 1.5 10*3/uL (0.11-0.8); Monocytes % 13.4 % (1.7-12.7); Neutrophils % 49.8 % (38.7-73.9); Platelet Count 326 T/CUMM (130-400); Red Blood Count 4.65 MC/CUMM (3.8-5.5); Red Cell Distribution Width 15.7 % (9.3-17.3); White Blood Count 11.3 T/CUMM (4-12)
[2022-03-20 06:13] LABS: Calcium 8.8 MG/DL (8.5-10.1); Osmolality,Calculated 284.3 MOS/KG (273-304); Potassium 3.8 MMOL/L (3.5-5.1)
[2022-03-20] MEDS: INSULIN REGULAR 100 UNIT/ML SUBCUT SCH ×4 (08:01→20:10)
[2022-03-20] MEDS: METOPROLOL SUCCINATE XL 25 MG TABLET PO SCH (08:50)
[2022-03-20] MEDS: PARoxetine 20 MG TABLET PO SCH (08:50)
[2022-03-20] MEDS: POTASSIUM CHLORIDE 20 MEQ TABLET PO SCH (08:51)
[2022-03-20] MEDS: buPROPion XL 150 MG TABLET PO SCH (08:51)
[2022-03-20] MEDS: PANTOPRAZOLE 40 MG TABLET PO SCH (08:51)
[2022-03-20] MEDS: DOCUSATE SODIUM 100 MG CAPSULE PO SCH ×2 (08:51→20:10)
[2022-03-20] MEDS: SODIUM CHLORIDE 0.45% 1,000 ML IV SCH ×2 (17:00→17:02)
[2022-03-20] MEDS: ATORVASTATIN 40 MG TABLET PO SCH (20:10)
[2022-03-20] MEDS: cefTRIAXone 1,000 MG in SODIUM CHLORIDE 0.9% 100 ML IV SCH (20:10)
[2022-03-21] MEDS: SODIUM CHLORIDE 0.45% 1,000 ML IV SCH ×2 (05:40→20:00)
[2022-03-21 06:27] LABS: Basophils # 0.1 10*3/uL (0.0-0.2); Basophils % 1.3 % (0.0-0.8); Eosinophils # 0.6 10*3/uL (0.0-0.87); Eosinophils % 5.8 % (0.00-10.9); Hematocrit 48.3 VOL% (42.0-52.0); Hemoglobin 15.6 GM/DL (14.0-18.0); Immature Granulocytes % 0.4 %; Immature Granulocytes Absolute 0.04 #; Lymphocytes # 2.9 10*3/uL (1.4-4.0); Lymphocytes % 29.3 % (21.2-54.2); Mean Corpuscular HGB Conc 32.3 GM/DL (32-36); Mean Corpuscular Volume 102.5 FL (87-102); Mean Platelet Volume 10.1 FL (9.6-12.0); Monocytes # 1.4 10*3/uL (0.11-0.8); Monocytes % 13.6 % (1.7-12.7); Neutrophils % 49.6 % (38.7-73.9); Platelet Count 334 T/CUMM (130-400); Red Blood Count 4.71 MC/CUMM (3.8-5.5); Red Cell Distribution Width 15.2 % (9.3-17.3)
[2022-03-21 06:47] LABS: Calcium 8.5 MG/DL (8.5-10.1); Potassium 3.8 MMOL/L (3.5-5.1)
[2022-03-21] MEDS: INSULIN REGULAR 100 UNIT/ML SUBCUT SCH ×3 (08:45→19:40)
[2022-03-21] MEDS: PANTOPRAZOLE 40 MG TABLET PO SCH (08:51)
[2022-03-21] MEDS: buPROPion XL 150 MG TABLET PO SCH (08:51)
[2022-03-21] MEDS: DOCUSATE SODIUM 100 MG CAPSULE PO SCH ×2 (08:51→20:00)
[2022-03-21] MEDS: POTASSIUM CHLORIDE 20 MEQ TABLET PO SCH (08:51)
[2022-03-21] MEDS: PARoxetine 20 MG TABLET PO SCH (08:52)
[2022-03-21] MEDS: METOPROLOL SUCCINATE XL 25 MG TABLET PO SCH (08:52)
[2022-03-21] MEDS ORDERED: MORPHINE 2 MG/1 ML SYRINGE IV ONE (09:16)
[2022-03-21] MEDS: cefTRIAXone 1,000 MG in SODIUM CHLORIDE 0.9% 100 ML IV SCH (20:00)
[2022-03-21] MEDS: ATORVASTATIN 40 MG TABLET PO SCH (20:00)
[2022-03-21] MEDS: ONDANSETRON 4 MG/2 ML VIAL IV PRN (22:50)
[2022-03-22] MEDS: ONDANSETRON 4 MG/2 ML VIAL IV PRN (05:50)
[2022-03-22] MEDS ORDERED: cefTRIAXone 1,000 MG in SODIUM CHLORIDE 0.9% 100 ML IV ONE (08:17)
[2022-03-22 09:02] LABS: Basophils # 0.1 10*3/uL (0.0-0.2); Basophils % 0.9 % (0.0-0.8); Eosinophils # 0.4 10*3/uL (0.0-0.87); Eosinophils % 3.4 % (0.00-10.9); Hemoglobin 16.1 GM/DL (14.0-18.0); Immature Granulocytes % 0.2 %; Immature Granulocytes Absolute 0.02 #; Lymphocytes # 3.4 10*3/uL (1.4-4.0); Lymphocytes % 30.6 % (21.2-54.2); Mean Corpuscular HGB Conc 32.9 GM/DL (32-36); Mean Corpuscular Volume 102.1 FL (87-102); Mean Platelet Volume 9.8 FL (9.6-12.0); Monocytes % 8.9 % (1.7-12.7); Platelet Count 355 T/CUMM (130-400); Red Cell Distribution Width 15.3 % (9.3-17.3); White Blood Count 11.1 T/CUMM (4-12)
[2022-03-22] MEDS: INSULIN REGULAR 100 UNIT/ML SUBCUT SCH ×4 (09:08→20:50)
[2022-03-22] MEDS: DOCUSATE SODIUM 100 MG CAPSULE PO SCH ×2 (09:09→20:50)
[2022-03-22] MEDS: POTASSIUM CHLORIDE 20 MEQ TABLET PO SCH (09:09)
[2022-03-22] MEDS: PANTOPRAZOLE 40 MG TABLET PO SCH (09:10)
[2022-03-22] MEDS: METOPROLOL SUCCINATE XL 25 MG TABLET PO SCH (09:10)
[2022-03-22] MEDS: PARoxetine 20 MG TABLET PO SCH (09:10)
[2022-03-22] MEDS: buPROPion XL 150 MG TABLET PO SCH (09:11)
[2022-03-22] MEDS: SODIUM CHLORIDE 0.45% 1,000 ML IV SCH (09:12)
[2022-03-22 09:16] LABS: Calcium 8.6 MG/DL (8.5-10.1); Osmolality,Calculated 286.8 MOS/KG (273-304); Potassium 4.8 MMOL/L (3.5-5.1)
[2022-03-22] MEDS ORDERED: DIAZEPAM 5 MG TABLET PO ONE (10:00)
[2022-03-22] MEDS: PROMETHAZINE 25 MG TABLET PO PRN (10:10)
[2022-03-22] MEDS ORDERED: ALBUTEROL 0.63 MG/3 ML NEB RESP TX PRN (12:44)
[2022-03-22] MEDS ORDERED: HYDROmorphone 1 MG/1 ML SYRINGE IV ONE (15:54)
[2022-03-22] MEDS ORDERED: GLUCAGON 1 MG VIAL IM PRN (16:09)
[2022-03-22] MEDS ORDERED: DEXTROSE 10% 250 ML BAG IV PRN (16:10)
[2022-03-22] MEDS: ATORVASTATIN 40 MG TABLET PO SCH (20:50)
[2022-03-22] MEDS: cefTRIAXone 1,000 MG in SODIUM CHLORIDE 0.9% 100 ML IV SCH (20:50)
[2022-03-22] MEDS: BUDESONIDE/FORMOTEROL 160-4.5 INHALER 6 GM INH SCH (20:50)
[2022-03-23 02:48] LABS: Basophils # 0.1 10*3/uL (0.0-0.2); Basophils % 0.8 % (0.0-0.8); Eosinophils # 0.4 10*3/uL (0.0-0.87); Eosinophils % 3.1 % (0.00-10.9); Hematocrit 49.8 VOL% (42.0-52.0); Hemoglobin 16.1 GM/DL (14.0-18.0); Immature Granulocytes % 0.3 %; Immature Granulocytes Absolute 0.04 #; Lymphocytes # 2.8 10*3/uL (1.4-4.0); Lymphocytes % 24.3 % (21.2-54.2); Mean Corpuscular HGB Conc 32.3 GM/DL (32-36); Mean Platelet Volume 10.4 FL (9.6-12.0); Monocytes % 8.3 % (1.7-12.7); Neutrophils % 63.2 % (38.7-73.9); Platelet Count 354 T/CUMM (130-400); Red Blood Count 4.88 MC/CUMM (3.8-5.5); Red Cell Distribution Width 15.1 % (9.3-17.3); White Blood Count 11.6 T/CUMM (4-12)
[2022-03-23 03:05] LABS: Calcium 8.7 MG/DL (8.5-10.1); Osmolality,Calculated 288.8 MOS/KG (273-304)
[2022-03-23] MEDS: ONDANSETRON 4 MG/2 ML VIAL IV PRN ×4 (03:40→23:18)
[2022-03-23] MEDS: MORPHINE 2 MG/1 ML SYRINGE IV PRN ×3 (03:40→23:20)
[2022-03-23] MEDS: INSULIN REGULAR 100 UNIT/ML SUBCUT SCH ×4 (07:13→22:32)
[2022-03-23] MEDS: SODIUM CHLORIDE 0.45% 1,000 ML IV SCH ×2 (07:56→22:30)
[2022-03-23] MEDS: POTASSIUM CHLORIDE 20 MEQ TABLET PO SCH (08:02)
[2022-03-23] MEDS: DOCUSATE SODIUM 100 MG CAPSULE PO SCH ×2 (08:02→22:32)
[2022-03-23] MEDS: PARoxetine 20 MG TABLET PO SCH (08:02)
[2022-03-23] MEDS: BUDESONIDE/FORMOTEROL 160-4.5 INHALER 6 GM INH SCH ×2 (08:02→22:33)
[2022-03-23] MEDS: PANTOPRAZOLE 40 MG TABLET PO SCH (08:02)
[2022-03-23] MEDS: METOPROLOL SUCCINATE XL 25 MG TABLET PO SCH (08:03)
[2022-03-23] MEDS: buPROPion XL 150 MG TABLET PO SCH (08:03)
[2022-03-23] MEDS ORDERED: LIDOCAINE 2% 5 ML VIAL ONE (12:36)
[2022-03-23] MEDS ORDERED: propofoL 200 MG/20 ML VIAL IV ONE ×2 (12:36→19:12)
[2022-03-23] MEDS ORDERED: ROCURONIUM 50 MG/5 ML VIAL IV ONE ×2 (12:36→16:50)
[2022-03-23] MEDS ORDERED: fentaNYL 100 MCG/2 ML VIAL ONE (12:36)
[2022-03-23] MEDS ORDERED: SEVOFLURANE 1 UNIT/15 MINUTE INH ONE ×7 (14:17→19:02)
[2022-03-23] MEDS ORDERED: LACTATED RINGERS 1,000 ML IV ONE ×3 (14:28→17:13)
[2022-03-23] MEDS ORDERED: MIDAZOLAM 2 MG/2 ML VIAL ONE (14:33)
[2022-03-23] MEDS ORDERED: ROPIVACAINE 0.5% 30 ML VIAL ONE (14:39)
[2022-03-23] MEDS ORDERED: GENTAMICIN 80 MG/2 ML VIAL ONE (15:16)
[2022-03-23] MEDS ORDERED: DEXAMETHASONE 4 MG/1 ML VIAL ONE (15:19)
[2022-03-23] MEDS ORDERED: ONDANSETRON 4 MG/2 ML VIAL ONE (15:20)
[2022-03-23] MEDS ORDERED: PHENYLEPHRINE 1 MG/10 ML SYRINGE IV ONE ×3 (15:25→17:17)
[2022-03-23] MEDS ORDERED: ACETAMINOPHEN INJ 1,000 MG/100 ML VIAL IV ONE (15:33)
[2022-03-23] MEDS ORDERED: GLYCOPYRROLATE 0.4 MG/2 ML VIAL ONE (16:23)
[2022-03-23] MEDS ORDERED: NEOSTIGMINE 10 MG/10 ML VIAL ONE (16:25)
[2022-03-23] MEDS ORDERED: NEOMYCIN/POLYMYXIN IRRIG SOLN 1 ML AMP BLADDERIRR ONE (16:46)
[2022-03-23] MEDS ORDERED: PROMETHAZINE INJ 25 MG in SODIUM CHLORIDE 0.9% 50 ML IV PRN (19:18)
[2022-03-23] MEDS ORDERED: HYDROmorphone 1 MG/1 ML SYRINGE IV PRN (19:18)
[2022-03-23] MEDS ORDERED: diphenhydrAMINE 50 MG/1 ML VIAL IV PRN (19:18)
[2022-03-23] MEDS ORDERED: ONDANSETRON 4 MG/2 ML VIAL IV PRN ×2 (19:18→19:47)
[2022-03-23] MEDS ORDERED: MEPERIDINE 50 MG/1 ML VIAL IV PRN (19:20)
[2022-03-23] MEDS ORDERED: GLUCAGON 1 MG VIAL IM PRN (19:37)
[2022-03-23] MEDS ORDERED: DEXTROSE 50% 25 GM/50 ML VIAL IV PRN (19:37)
[2022-03-23] MEDS: HYDROmorphone 1 MG/1 ML SYRINGE IV PRN ×4 (19:55→20:22)
[2022-03-23 20:18] LABS: Basophils % 0.3 % (0.0-0.8); Eosinophils % 0.1 % (0.00-10.9); Immature Granulocytes % 0.5 %; Immature Granulocytes Absolute 0.07 #; Lymphocytes # 2.2 10*3/uL (1.4-4.0); Lymphocytes % 14.1 % (21.2-54.2); Mean Corpuscular HGB Conc 33.3 GM/DL (32-36); Mean Corpuscular Volume 102.3 FL (87-102); Mean Platelet Volume 9.5 FL (9.6-12.0); Monocytes # 0.2 10*3/uL (0.11-0.8); Monocytes % 1.4 % (1.7-12.7); Neutrophils % 83.6 % (38.7-73.9); Platelet Count 393 T/CUMM (130-400); Red Blood Count 5.28 MC/CUMM (3.8-5.5); Red Cell Distribution Width 15.4 % (9.3-17.3); White Blood Count 15.4 T/CUMM (4-12)
[2022-03-23 20:36] LABS: Calcium 9.3 MG/DL (8.5-10.1); Osmolality,Calculated 278.5 MOS/KG (273-304); Potassium 4.2 MMOL/L (3.5-5.1)
[2022-03-23] MEDS: cefTRIAXone 1,000 MG in SODIUM CHLORIDE 0.9% 100 ML IV SCH (22:32)
[2022-03-23] MEDS: ATORVASTATIN 40 MG TABLET PO SCH (22:32)
[2022-03-24] MEDS: ONDANSETRON 4 MG/2 ML VIAL IV PRN ×2 (03:40→21:06)
[2022-03-24] MEDS: MORPHINE 2 MG/1 ML SYRINGE IV PRN ×4 (03:43→21:06)
[2022-03-24 05:48] LABS: Calcium 9.1 MG/DL (8.5-10.1); Osmolality,Calculated 280.4 MOS/KG (273-304)
[2022-03-24 06:55] LABS: Basophils % 0.2 % (0.0-0.8); Eosinophils % 0.1 % (0.00-10.9); Hematocrit 50.7 VOL% (42.0-52.0); Hemoglobin 16.7 GM/DL (14.0-18.0); Immature Granulocytes % 0.5 %; Immature Granulocytes Absolute 0.08 #; Lymphocytes # 2.7 10*3/uL (1.4-4.0); Lymphocytes % 15.4 % (21.2-54.2); Mean Corpuscular HGB Conc 32.9 GM/DL (32-36); Monocytes # 1.2 10*3/uL (0.11-0.8); Monocytes % 6.8 % (1.7-12.7); NRBC # 0.03 10*3/uL; Platelet Count 376 T/CUMM (130-400); Red Blood Count 4.97 MC/CUMM (3.8-5.5); Red Cell Distribution Width 15.5 % (9.3-17.3); White Blood Count 17.3 T/CUMM (4-12)
[2022-03-24] MEDS ORDERED: MAGNESIUM SULF RIDER 4 GM/100 ML PREMIX IV PRN (06:59)
[2022-03-24] MEDS ORDERED: MAGNESIUM SULF RIDER 2 GM/50 ML PREMIX IV PRN (06:59)
[2022-03-24] MEDS: INSULIN REGULAR 100 UNIT/ML SUBCUT SCH ×4 (07:11→20:52)
[2022-03-24] MEDS: PROMETHAZINE 25 MG TABLET PO PRN ×3 (07:57→23:07)
[2022-03-24] MEDS: PARoxetine 20 MG TABLET PO SCH (07:59)
[2022-03-24] MEDS: buPROPion XL 150 MG TABLET PO SCH (08:00)
[2022-03-24] MEDS: POTASSIUM CHLORIDE 20 MEQ TABLET PO SCH (08:00)
[2022-03-24] MEDS: DOCUSATE SODIUM 100 MG CAPSULE PO SCH ×2 (08:00→20:56)
[2022-03-24] MEDS: BUDESONIDE/FORMOTEROL 160-4.5 INHALER 6 GM INH SCH ×2 (08:00→21:10)
[2022-03-24] MEDS: METOPROLOL SUCCINATE XL 25 MG TABLET PO SCH (08:00)
[2022-03-24] MEDS: PANTOPRAZOLE 40 MG TABLET PO SCH (08:00)
[2022-03-24] MEDS ORDERED: MAGNESIUM SULF RIDER 2 GM/50 ML PREMIX IV ONE (08:09)
[2022-03-24] MEDS: SODIUM CHLORIDE 0.45% 1,000 ML IV SCH ×2 (09:56→22:30)
[2022-03-24] MEDS: ATORVASTATIN 40 MG TABLET PO SCH (20:56)
[2022-03-24] MEDS: cefTRIAXone 1,000 MG in SODIUM CHLORIDE 0.9% 100 ML IV SCH (20:57)
[2022-03-25] MEDS: MORPHINE 2 MG/1 ML SYRINGE IV PRN ×4 (04:15→20:34)
[2022-03-25 05:50] LABS: Basophils # 0.1 10*3/uL (0.0-0.2); Basophils % 0.5 % (0.0-0.8); Eosinophils # 0.1 10*3/uL (0.0-0.87); Eosinophils % 0.9 % (0.00-10.9); Hematocrit 47.5 VOL% (42.0-52.0); Hemoglobin 15.4 GM/DL (14.0-18.0); Immature Granulocytes % 0.3 %; Immature Granulocytes Absolute 0.04 #; Lymphocytes # 4.2 10*3/uL (1.4-4.0); Lymphocytes % 32.5 % (21.2-54.2); Mean Corpuscular HGB Conc 32.4 GM/DL (32-36); Mean Corpuscular Volume 102.8 FL (87-102); Mean Platelet Volume 10.5 FL (9.6-12.0); Monocytes # 1.5 10*3/uL (0.11-0.8); Monocytes % 11.7 % (1.7-12.7); Neutrophils % 54.1 % (38.7-73.9); Platelet Count 349 T/CUMM (130-400); Red Blood Count 4.62 MC/CUMM (3.8-5.5); Red Cell Distribution Width 15.7 % (9.3-17.3)
[2022-03-25 06:04] LABS: Calcium 8.6 MG/DL (8.5-10.1); Potassium 4.3 MMOL/L (3.5-5.1)
[2022-03-25] MEDS: INSULIN REGULAR 100 UNIT/ML SUBCUT SCH ×4 (08:10→20:34)
[2022-03-25] MEDS: METOPROLOL SUCCINATE XL 25 MG TABLET PO SCH (08:59)
[2022-03-25] MEDS: DOCUSATE SODIUM 100 MG CAPSULE PO SCH ×2 (09:00→20:33)
[2022-03-25] MEDS: buPROPion XL 150 MG TABLET PO SCH (09:00)
[2022-03-25] MEDS: PARoxetine 20 MG TABLET PO SCH (09:00)
[2022-03-25] MEDS: POTASSIUM CHLORIDE 20 MEQ TABLET PO SCH (09:00)
[2022-03-25] MEDS: BUDESONIDE/FORMOTEROL 160-4.5 INHALER 6 GM INH SCH ×2 (09:03→20:39)
[2022-03-25] MEDS: PANTOPRAZOLE 40 MG TABLET PO SCH (09:03)
[2022-03-25] MEDS: ONDANSETRON 4 MG/2 ML VIAL IV PRN (12:47)
[2022-03-25] MEDS: SODIUM CHLORIDE 0.45% 1,000 ML IV SCH (12:50)
[2022-03-25] MEDS: cefTRIAXone 1,000 MG in SODIUM CHLORIDE 0.9% 100 ML IV SCH (20:32)
[2022-03-25] MEDS: PROMETHAZINE 25 MG TABLET PO PRN (20:33)
[2022-03-25] MEDS: ATORVASTATIN 40 MG TABLET PO SCH (20:33)
[2022-03-26] MEDS: SODIUM CHLORIDE 0.45% 1,000 ML IV SCH (01:42)
[2022-03-26] MEDS: MORPHINE 2 MG/1 ML SYRINGE IV PRN (01:46)
[2022-03-26 05:18] LABS: Basophils # 0.1 10*3/uL (0.0-0.2); Basophils % 0.9 % (0.0-0.8); Eosinophils # 0.3 10*3/uL (0.0-0.87); Eosinophils % 2.6 % (0.00-10.9); Hematocrit 46.2 VOL% (42.0-52.0); Hemoglobin 15.3 GM/DL (14.0-18.0); Immature Granulocytes % 0.4 %; Immature Granulocytes Absolute 0.05 #; Lymphocytes # 3.8 10*3/uL (1.4-4.0); Lymphocytes % 31.5 % (21.2-54.2); Mean Corpuscular HGB Conc 33.1 GM/DL (32-36); Mean Corpuscular Volume 103.1 FL (87-102); Monocytes # 1.4 10*3/uL (0.11-0.8); Monocytes % 11.9 % (1.7-12.7); Neutrophils % 52.7 % (38.7-73.9); Platelet Count 348 T/CUMM (130-400); Red Blood Count 4.48 MC/CUMM (3.8-5.5); Red Cell Distribution Width 15.3 % (9.3-17.3); White Blood Count 11.9 T/CUMM (4-12)
[2022-03-26 05:34] LABS: Calcium 8.8 MG/DL (8.5-10.1); Osmolality,Calculated 281.3 MOS/KG (273-304); Potassium 4.2 MMOL/L (3.5-5.1)
[2022-03-26] MEDS ORDERED: MAGNESIUM SULF RIDER 2 GM/50 ML PREMIX IV ONE (07:49)
[2022-03-26] MEDS: PROMETHAZINE 25 MG TABLET PO PRN (07:53)
[2022-03-26] MEDS: buPROPion XL 150 MG TABLET PO SCH (08:33)
[2022-03-26] MEDS: POTASSIUM CHLORIDE 20 MEQ TABLET PO SCH (08:34)
[2022-03-26] MEDS: PARoxetine 20 MG TABLET PO SCH (08:34)
[2022-03-26] MEDS: PANTOPRAZOLE 40 MG TABLET PO SCH (08:34)
[2022-03-26] MEDS: DOCUSATE SODIUM 100 MG CAPSULE PO SCH (08:34)
[2022-03-26] MEDS: METOPROLOL SUCCINATE XL 25 MG TABLET PO SCH (08:34)
[2022-03-26] MEDS: BUDESONIDE/FORMOTEROL 160-4.5 INHALER 6 GM INH SCH (08:36)
[2022-03-26] MEDS ORDERED: ASPIRIN EC 81 MG TABLET PO SCH (09:00)
[2022-03-26] MEDS: INSULIN REGULAR 100 UNIT/ML SUBCUT SCH ×2 (09:56→12:15)
[2022-03-26 12:29] VITALS: BP 129/82
[2022-03-29 09:31] LABS: Stone Source Right Kidney
== END 2022-03-26 15:43 | disposition home or self-care (01) | DRG 660 ==
LOC: N.ED 20:50 → N.EDINP 03-14 01:10 → SUATTDRO 03-14 01:10 → N.5E 03-14 01:59
PROVIDERS: ADMIT Internal Medicine; ATTEND Emergency Medicine

== ENCOUNTER 2022-06-23 21:36 | Inpatient (IN) ==
[2022-06-23] MEDS ORDERED: ONDANSETRON 4 MG/2 ML VIAL IV STA (23:45)
[2022-06-23] MEDS ORDERED: SODIUM CHLORIDE 0.9% 1,000 ML IV STA (23:45)
[2022-06-23] MEDS ORDERED: KETOROLAC 30 MG/1 ML VIAL IV STA (23:45)
[2022-06-23] MEDS ORDERED: ALBUTEROL/IPRATROPIUM 3 ML NEB RESP TX STA (23:47)
[2022-06-24 00:07] LABS: Albumin 3.3 G/DL (3.4-5.0); Bilirubin,Total 0.4 MG/DL (0.20-1.00); Calcium 9.4 MG/DL (8.5-10.1); Osmolality,Calculated 288.5 MOS/KG (273-304); Potassium 2.7 MMOL/L (3.5-5.1); Total Protein 8.2 G/DL (6.4-8.2)
[2022-06-24 00:25] LABS: Basophils # 0.1 10*3/uL (0.0-0.2); Basophils % 0.9 % (0.0-0.8); Eosinophils # 0.5 10*3/uL (0.0-0.87); Eosinophils % 3.4 % (0.00-10.9); Hematocrit 52.1 VOL% (42.0-52.0); Hemoglobin 17.3 GM/DL (14.0-18.0); Immature Granulocytes % 0.4 %; Immature Granulocytes Absolute 0.05 #; Lymphocytes # 4.8 10*3/uL (1.4-4.0); Lymphocytes % 34.8 % (21.2-54.2); Mean Corpuscular HGB Conc 33.2 GM/DL (32-36); Mean Platelet Volume 10.3 FL (9.6-12.0); Monocytes # 1.3 10*3/uL (0.11-0.8); Monocytes % 9.7 % (1.7-12.7); Neutrophils % 50.8 % (38.7-73.9); Platelet Count 366 T/CUMM (130-400); Red Blood Count 5.16 MC/CUMM (3.8-5.5); Red Cell Distribution Width 16.6 % (9.3-17.3); White Blood Count 13.7 T/CUMM (4-12)
[2022-06-24] MEDS ORDERED: PROMETHAZINE INJ 25 MG in SODIUM CHLORIDE 0.9% 50 ML IV STA (01:06)
[2022-06-24] MEDS ORDERED: HYDROmorphone 1 MG/1 ML SYRINGE IV STA (01:06)
[2022-06-24 01:10] LABS: RBC,Urine 776 /HPF (0-4)
[2022-06-24 01:11] LABS: Bilirubin,Urine Negative (Negative); Blood, Urine Moderate mg/dL (Negative); Glucose,Urine (UA) Negative (Negative); Ketones,Urine Negative (Negative); Nitrite,Urine Negative (Negative); Protein,Urine 100 mg/dL (Negative); Urine Appearance Slightly Cloudy (Clear); Urine Color Yellow (Yellow); Urine Specific Gravity 1.025 (1.001-1.035); Urine Urobilinogen 0.2 eU/dL (<2.0)
[2022-06-24] MEDS ORDERED: CIPROFLOXACIN INJ 400 MG/200 ML PREMIX IV STA (01:45)
[2022-06-24] MEDS ORDERED: hydrALAZINE 20 MG/1 ML VIAL IV PRN (02:45)
[2022-06-24] MEDS ORDERED: ZALEPLON 5 MG CAPSULE PO PRN (02:45)
[2022-06-24] MEDS ORDERED: NICOTINE 21 MG/24 HR PATCH TRANSDERM PRN (02:45)
[2022-06-24] MEDS ORDERED: ALBUTEROL/IPRATROPIUM 3 ML NEB RESP TX PRN (02:45)
[2022-06-24] MEDS ORDERED: HYDROmorphone 1 MG/1 ML SYRINGE IV PRN (02:45)
[2022-06-24] MEDS ORDERED: ACETAMINOPHEN 325 MG TABLET PO PRN (02:45)
[2022-06-24] MEDS: POTASSIUM CHLORIDE RIDER 10 MEQ/100 ML PREMIX IV SCH ×3 (04:00→10:38)
[2022-06-24 06:10] LABS: Basophils # 0.2 10*3/uL (0.0-0.2); Basophils % 1.6 % (0.0-0.8); Eosinophils # 0.5 10*3/uL (0.0-0.87); Eosinophils % 4.5 % (0.00-10.9); Hematocrit 49.5 VOL% (42.0-52.0); Hemoglobin 16.3 GM/DL (14.0-18.0); Immature Granulocytes % 0.2 %; Immature Granulocytes Absolute 0.02 #; Lymphocytes # 4.6 10*3/uL (1.4-4.0); Lymphocytes % 42.2 % (21.2-54.2); Mean Corpuscular HGB Conc 32.9 GM/DL (32-36); Mean Corpuscular Volume 100.2 FL (87-102); Mean Platelet Volume 9.4 FL (9.6-12.0); Monocytes # 1.2 10*3/uL (0.11-0.8); Monocytes % 11.3 % (1.7-12.7); Neutrophils % 40.2 % (38.7-73.9); Platelet Count 315 T/CUMM (130-400); Red Blood Count 4.94 MC/CUMM (3.8-5.5); Red Cell Distribution Width 16.6 % (9.3-17.3); White Blood Count 10.9 T/CUMM (4-12)
[2022-06-24 06:31] LABS: Calcium 8.6 MG/DL (8.5-10.1); Potassium 3.1 MMOL/L (3.5-5.1)
[2022-06-24] MEDS ORDERED: KETOROLAC 15 MG/1 ML VIAL IV ONE (06:45)
[2022-06-24] MEDS: cefTRIAXone 1,000 MG in SODIUM CHLORIDE 0.9% 100 ML IV SCH (06:47)
[2022-06-24] MEDS ORDERED: MAGNESIUM SULF RIDER 2 GM/50 ML PREMIX IV PRN (08:05)
[2022-06-24] MEDS ORDERED: MAGNESIUM SULF RIDER 4 GM/100 ML PREMIX IV PRN (08:05)
[2022-06-24] MEDS ORDERED: POTASSIUM CHLORIDE 20 MEQ TABLET PO ONE (08:05)
[2022-06-24] MEDS: LACTATED RINGERS 1,000 ML IV SCH ×2 (08:56→18:19)
[2022-06-24] MEDS: PANTOPRAZOLE 40 MG TABLET PO SCH (10:03)
[2022-06-24] MEDS: HYDROmorphone 1 MG/1 ML SYRINGE IV PRN ×2 (10:47→17:26)
[2022-06-24] MEDS: ENOXAPARIN 120 MG/0.8 ML SYRINGE SUBCUT SCH (17:30)
[2022-06-24] MEDS: ONDANSETRON 4 MG/2 ML VIAL IV PRN (17:41)
[2022-06-24] MEDS: PROMETHAZINE 25 MG/1 ML VIAL IV PRN (19:30)
[2022-06-24] MEDS: TAMSULOSIN 0.4 MG CAPSULE PO SCH (21:23)
[2022-06-24] MEDS: ATORVASTATIN 40 MG TABLET PO SCH (21:24)
[2022-06-25] MEDS: LACTATED RINGERS 1,000 ML IV SCH ×4 (00:18→16:56)
[2022-06-25] MEDS: HYDROmorphone 1 MG/1 ML SYRINGE IV PRN ×2 (02:30→07:21)
[2022-06-25] MEDS: cefTRIAXone 1,000 MG in SODIUM CHLORIDE 0.9% 100 ML IV SCH (04:09)
[2022-06-25 06:03] LABS: Basophils # 0.1 10*3/uL (0.0-0.2); Basophils % 1.5 % (0.0-0.8); Eosinophils # 0.7 10*3/uL (0.0-0.87); Eosinophils % 7.3 % (0.00-10.9); Hematocrit 48.7 VOL% (42.0-52.0); Hemoglobin 15.9 GM/DL (14.0-18.0); Immature Granulocytes % 0.2 %; Immature Granulocytes Absolute 0.02 #; Lymphocytes # 3.8 10*3/uL (1.4-4.0); Lymphocytes % 39.9 % (21.2-54.2); Mean Corpuscular HGB Conc 32.6 GM/DL (32-36); Mean Corpuscular Volume 103.4 FL (87-102); Mean Platelet Volume 10.6 FL (9.6-12.0); Monocytes # 1.1 10*3/uL (0.11-0.8); Monocytes % 11.2 % (1.7-12.7); Neutrophils % 39.9 % (38.7-73.9); Platelet Count 292 T/CUMM (130-400); Red Blood Count 4.71 MC/CUMM (3.8-5.5); Red Cell Distribution Width 17.4 % (9.3-17.3); White Blood Count 9.6 T/CUMM (4-12)
[2022-06-25 06:26] LABS: Albumin 2.8 G/DL (3.4-5.0); Bilirubin,Total 0.4 MG/DL (0.20-1.00); Calcium 9.2 MG/DL (8.5-10.1); Osmolality,Calculated 295.8 MOS/KG (273-304); Total Protein 6.9 G/DL (6.4-8.2)
[2022-06-25] MEDS ORDERED: POTASSIUM CHLORIDE 20 MEQ TABLET PO ONE (07:42)
[2022-06-25] MEDS ORDERED: METOPROLOL SUCCINATE XL 25 MG TABLET PO SCH (09:00)
[2022-06-25] MEDS: MEROPENEM 500 MG in SODIUM CHLORIDE 0.9% 100 ML IV SCH ×2 (09:54→16:56)
[2022-06-25] MEDS: PANTOPRAZOLE 40 MG TABLET PO SCH (09:54)
[2022-06-25] MEDS: ENOXAPARIN 120 MG/0.8 ML SYRINGE SUBCUT SCH (12:27)
[2022-06-25] MEDS ORDERED: METOPROLOL TARTRATE 5 MG/5 ML VIAL IV PRN (14:07)
[2022-06-25] MEDS: PHENAZOPYRIDINE 95 MG TABLET PO SCH (16:55)
[2022-06-25] MEDS: oxyCODONE/ACETAMINOPHEN 5-325 MG TABLET PO PRN (16:56)
[2022-06-25] MEDS: ATORVASTATIN 40 MG TABLET PO SCH (20:23)
[2022-06-25] MEDS: METOPROLOL SUCCINATE XL 25 MG TABLET PO SCH (20:23)
[2022-06-25] MEDS: TAMSULOSIN 0.4 MG CAPSULE PO SCH (20:23)
[2022-06-25] MEDS: PROMETHAZINE 25 MG/1 ML VIAL IV PRN (20:25)
[2022-06-26] MEDS: MEROPENEM 500 MG in SODIUM CHLORIDE 0.9% 100 ML IV SCH ×3 (00:12→17:16)
[2022-06-26] MEDS: oxyCODONE/ACETAMINOPHEN 5-325 MG TABLET PO PRN ×4 (00:29→21:53)
[2022-06-26] MEDS: LACTATED RINGERS 1,000 ML IV SCH (03:14)
[2022-06-26] MEDS: PROMETHAZINE 25 MG/1 ML VIAL IV PRN (03:23)
[2022-06-26 05:46] LABS: Basophils # 0.1 10*3/uL (0.0-0.2); Basophils % 1.3 % (0.0-0.8); Eosinophils # 0.6 10*3/uL (0.0-0.87); Eosinophils % 6.8 % (0.00-10.9); Hematocrit 49.4 VOL% (42.0-52.0); Immature Granulocytes % 0.2 %; Immature Granulocytes Absolute 0.02 #; Lymphocytes # 3.5 10*3/uL (1.4-4.0); Mean Corpuscular HGB Conc 32.4 GM/DL (32-36); Mean Corpuscular Volume 102.3 FL (87-102); Mean Platelet Volume 9.9 FL (9.6-12.0); Monocytes % 10.2 % (1.7-12.7); Neutrophils % 43.5 % (38.7-73.9); Platelet Count 307 T/CUMM (130-400); Red Blood Count 4.83 MC/CUMM (3.8-5.5); Red Cell Distribution Width 17.5 % (9.3-17.3); White Blood Count 9.3 T/CUMM (4-12)
[2022-06-26 06:24] LABS: Calcium 8.9 MG/DL (8.5-10.1); Osmolality,Calculated 294.8 MOS/KG (273-304); Potassium 3.4 MMOL/L (3.5-5.1)
[2022-06-26] MEDS ORDERED: POTASSIUM CHLORIDE 20 MEQ TABLET PO ONE (07:16)
[2022-06-26] MEDS: METOPROLOL SUCCINATE XL 25 MG TABLET PO SCH ×2 (09:26→21:52)
[2022-06-26] MEDS: PANTOPRAZOLE 40 MG TABLET PO SCH (09:26)
[2022-06-26] MEDS: PHENAZOPYRIDINE 95 MG TABLET PO SCH ×3 (09:26→17:16)
[2022-06-26] MEDS: ONDANSETRON 4 MG/2 ML VIAL IV PRN ×2 (09:47→13:19)
[2022-06-26] MEDS: ENOXAPARIN 120 MG/0.8 ML SYRINGE SUBCUT SCH (14:33)
[2022-06-26] MEDS: PROMETHAZINE 25 MG/1 ML VIAL IM PRN ×2 (15:59→21:52)
[2022-06-26] MEDS: ATORVASTATIN 40 MG TABLET PO SCH (21:52)
[2022-06-26] MEDS: POLYETHYLENE GLYCOL POWDER 17 GM PACK PO SCH (21:52)
[2022-06-26] MEDS: TAMSULOSIN 0.4 MG CAPSULE PO SCH (21:53)
[2022-06-27] MEDS: MEROPENEM 500 MG in SODIUM CHLORIDE 0.9% 100 ML IV SCH ×2 (02:28→09:16)
[2022-06-27] MEDS: PROMETHAZINE 25 MG/1 ML VIAL IM PRN (03:18)
[2022-06-27] MEDS: oxyCODONE/ACETAMINOPHEN 5-325 MG TABLET PO PRN ×2 (03:19→21:31)
[2022-06-27 05:59] LABS: Basophils # 0.1 10*3/uL (0.0-0.2); Basophils % 1.1 % (0.0-0.8); Eosinophils # 0.6 10*3/uL (0.0-0.87); Eosinophils % 6.1 % (0.00-10.9); Hematocrit 47.7 VOL% (42.0-52.0); Hemoglobin 15.4 GM/DL (14.0-18.0); Immature Granulocytes % 0.3 %; Immature Granulocytes Absolute 0.03 #; Lymphocytes # 3.9 10*3/uL (1.4-4.0); Lymphocytes % 37.4 % (21.2-54.2); Mean Corpuscular HGB Conc 32.3 GM/DL (32-36); Mean Platelet Volume 10.2 FL (9.6-12.0); Monocytes # 1.4 10*3/uL (0.11-0.8); Monocytes % 13.2 % (1.7-12.7); Neutrophils % 41.9 % (38.7-73.9); Platelet Count 302 T/CUMM (130-400); Red Blood Count 4.63 MC/CUMM (3.8-5.5); Red Cell Distribution Width 17.7 % (9.3-17.3); White Blood Count 10.3 T/CUMM (4-12)
[2022-06-27 06:27] LABS: Calcium 8.5 MG/DL (8.5-10.1); Potassium 3.5 MMOL/L (3.5-5.1)
[2022-06-27] MEDS ORDERED: POTASSIUM CHLORIDE 20 MEQ TABLET PO ONE (08:07)
[2022-06-27] MEDS: METOPROLOL SUCCINATE XL 25 MG TABLET PO SCH (09:15)
[2022-06-27] MEDS: PANTOPRAZOLE 40 MG TABLET PO SCH (09:15)
[2022-06-27] MEDS: PHENAZOPYRIDINE 95 MG TABLET PO SCH ×3 (09:15→16:01)
[2022-06-27] MEDS: POLYETHYLENE GLYCOL POWDER 17 GM PACK PO SCH ×2 (09:16→21:24)
[2022-06-27] MEDS: ENOXAPARIN 120 MG/0.8 ML SYRINGE SUBCUT SCH (12:14)
[2022-06-27] MEDS ORDERED: METOPROLOL TARTRATE 25 MG TABLET PO ONE (13:24)
[2022-06-27] MEDS ORDERED: METOPROLOL SUCCINATE XL 25 MG TABLET PO ONE (13:26)
[2022-06-27] MEDS: PROMETHAZINE 25 MG TABLET PO PRN ×2 (16:01→21:31)
[2022-06-27] MEDS: TAMSULOSIN 0.4 MG CAPSULE PO SCH (21:25)
[2022-06-27] MEDS: METOPROLOL SUCCINATE XL 50 MG TABLET PO SCH (21:25)
[2022-06-27] MEDS: ATORVASTATIN 40 MG TABLET PO SCH (21:25)
[2022-06-28] MEDS: oxyCODONE/ACETAMINOPHEN 5-325 MG TABLET PO PRN (04:07)
[2022-06-28] MEDS: PROMETHAZINE 25 MG TABLET PO PRN (04:07)
[2022-06-28 06:28] LABS: Calcium 8.1 MG/DL (8.5-10.1); Osmolality,Calculated 292.7 MOS/KG (273-304); Potassium 3.6 MMOL/L (3.5-5.1)
[2022-06-28] MEDS: POLYETHYLENE GLYCOL POWDER 17 GM PACK PO SCH (08:27)
[2022-06-28] MEDS: PANTOPRAZOLE 40 MG TABLET PO SCH (08:28)
[2022-06-28] MEDS: PHENAZOPYRIDINE 95 MG TABLET PO SCH ×2 (08:28→11:35)
[2022-06-28] MEDS: METOPROLOL SUCCINATE XL 50 MG TABLET PO SCH (08:28)
[2022-06-28] MEDS ORDERED: LEVOFLOXACIN 250 MG TABLET PO SCH (09:00)
[2022-06-28] MEDS: ENOXAPARIN 120 MG/0.8 ML SYRINGE SUBCUT SCH (11:35)
[2022-06-28 12:37] VITALS: BP 97/62
== END 2022-06-28 16:00 | disposition home or self-care (01) | DRG 690 ==
LOC: N.ED 21:36 → N.EDINP 06-24 02:45 → N.TELES 06-24 04:46
PROVIDERS: ADMIT Internal Medicine; ATTEND Internal Medicine

== ENCOUNTER 2022-07-14 21:51 | Observation (INO) ==
[2022-07-14] MEDS ORDERED: KETOROLAC 30 MG/1 ML VIAL IV STA (22:25)
[2022-07-14] MEDS ORDERED: HYDROmorphone 1 MG/1 ML SYRINGE IV STA (22:25)
[2022-07-14] MEDS ORDERED: ONDANSETRON 4 MG/2 ML VIAL IV STA (22:25)
[2022-07-14] MEDS ORDERED: ALBUTEROL/IPRATROPIUM 3 ML NEB RESP TX STA (22:25)
[2022-07-14] MEDS ORDERED: SODIUM CHLORIDE 0.9% 1,000 ML IV STA (22:25)
[2022-07-14] MEDS ORDERED: methylPREDNISolone SOD SUC 125 MG/2 ML VIAL IV STA (22:25)
[2022-07-14 23:11] LABS: Basophils # 0.1 10*3/uL (0.0-0.2); Eosinophils # 0.5 10*3/uL (0.0-0.87); Hematocrit 51.1 VOL% (42.0-52.0); Hemoglobin 17.2 GM/DL (14.0-18.0); Immature Granulocytes % 0.3 %; Immature Granulocytes Absolute 0.04 #; Lymphocytes # 5.1 10*3/uL (1.4-4.0); Lymphocytes % 38.3 % (21.2-54.2); Mean Corpuscular HGB Conc 33.7 GM/DL (32-36); Mean Corpuscular Volume 98.8 FL (87-102); Mean Platelet Volume 9.4 FL (9.6-12.0); Monocytes # 1.2 10*3/uL (0.11-0.8); Monocytes % 9.1 % (1.7-12.7); Neutrophils % 47.3 % (38.7-73.9); Platelet Count 431 T/CUMM (130-400); Red Blood Count 5.17 MC/CUMM (3.8-5.5); Red Cell Distribution Width 16.7 % (9.3-17.3); White Blood Count 13.4 T/CUMM (4-12)
[2022-07-14 23:30] LABS: Albumin 3.4 G/DL (3.4-5.0); Bilirubin,Total 0.4 MG/DL (0.20-1.00); Calcium 9.4 MG/DL (8.5-10.1); Potassium 3.3 MMOL/L (3.5-5.1); Total Protein 7.8 G/DL (6.4-8.2)
[2022-07-14 23:34] LABS: Osmolality,Calculated 290.7 MOS/KG (273-304)
[2022-07-14 23:34] LABS: Protein,Urine 100 mg/dL (Negative); RBC,Urine 163 /HPF (0-4); Urine Appearance Cloudy (Clear); Urine Color Yellow (Yellow); Urine Specific Gravity 1.025 (1.001-1.035); Urine pH 6.5 (4.5-8.0)
[2022-07-14 23:35] LABS: Bilirubin,Urine Negative (Negative); Blood, Urine Large mg/dL (Negative); Glucose,Urine (UA) Negative (Negative); Ketones,Urine Negative (Negative); Nitrite,Urine Negative (Negative); Urine Urobilinogen 0.2 eU/dL (<2.0)
[2022-07-14] MEDS ORDERED: MEROPENEM 1,000 MG in SODIUM CHLORIDE 0.9% 100 ML IV ONE (23:43)
[2022-07-14] MEDS ORDERED: SIMETHICONE CHEW 125 MG TABLET PO PRN (23:56)
[2022-07-14] MEDS ORDERED: ACETAMINOPHEN 325 MG TABLET PO PRN (23:56)
[2022-07-14] MEDS ORDERED: NICOTINE 21 MG/24 HR PATCH TRANSDERM PRN (23:56)
[2022-07-14] MEDS ORDERED: ALBUTEROL 2.5 MG/3 ML NEB RESP TX PRN (23:56)
[2022-07-15] MEDS ORDERED: POTASSIUM CHLORIDE RIDER 10 MEQ/100 ML PREMIX IV PRN (00:09)
[2022-07-15] MEDS ORDERED: POTASSIUM CHLORIDE 20 MEQ TABLET PO STA (00:09)
[2022-07-15] MEDS: ONDANSETRON 4 MG/2 ML VIAL IV PRN ×3 (01:01→08:23)
[2022-07-15] MEDS: MORPHINE 2 MG/1 ML SYRINGE IV PRN ×5 (01:02→21:10)
[2022-07-15 05:14] LABS: Basophils % 0.2 % (0.0-0.8); Hematocrit 50.7 VOL% (42.0-52.0); Hemoglobin 16.7 GM/DL (14.0-18.0); Immature Granulocytes % 0.4 %; Immature Granulocytes Absolute 0.04 #; Lymphocytes # 1.3 10*3/uL (1.4-4.0); Lymphocytes % 14.1 % (21.2-54.2); Mean Corpuscular HGB Conc 32.9 GM/DL (32-36); Mean Corpuscular Volume 101.4 FL (87-102); Mean Platelet Volume 9.6 FL (9.6-12.0); Monocytes % 0.3 % (1.7-12.7); Platelet Count 427 T/CUMM (130-400); Red Cell Distribution Width 17.2 % (9.3-17.3)
[2022-07-15 05:32] LABS: Calcium 8.6 MG/DL (8.5-10.1); Osmolality,Calculated 301.4 MOS/KG (273-304); Potassium 3.6 MMOL/L (3.5-5.1)
[2022-07-15] MEDS: DOCUSATE SODIUM 100 MG CAPSULE PO SCH ×2 (08:21→21:10)
[2022-07-15] MEDS: PANTOPRAZOLE 40 MG TABLET PO SCH (08:21)
[2022-07-15] MEDS: POTASSIUM CHLORIDE 20 MEQ TABLET PO PRN ×2 (08:22→10:46)
[2022-07-15] MEDS: LEVOFLOXACIN INJ 750 MG/150 ML PREMIX IV SCH (08:23)
[2022-07-15] MEDS: SODIUM CHLORIDE 0.9% 1,000 ML IV SCH ×3 (08:25→12:30)
[2022-07-15] MEDS ORDERED: ONDANSETRON 4 MG/2 ML VIAL IV ONE (11:11)
[2022-07-15] MEDS: PROMETHAZINE 25 MG TABLET PO PRN ×2 (12:34→21:10)
[2022-07-16] MEDS: PROMETHAZINE 25 MG TABLET PO PRN (03:23)
[2022-07-16] MEDS: MORPHINE 2 MG/1 ML SYRINGE IV PRN ×3 (03:23→18:40)
[2022-07-16 05:21] LABS: Basophils % 0.1 % (0.0-0.8); Hematocrit 50.3 VOL% (42.0-52.0); Hemoglobin 16.3 GM/DL (14.0-18.0); Immature Granulocytes % 0.7 %; Immature Granulocytes Absolute 0.14 #; Lymphocytes % 19.7 % (21.2-54.2); Mean Corpuscular HGB Conc 32.4 GM/DL (32-36); Mean Corpuscular Volume 101.8 FL (87-102); Mean Platelet Volume 9.8 FL (9.6-12.0); Monocytes # 2.1 10*3/uL (0.11-0.8); Monocytes % 10.2 % (1.7-12.7); Neutrophils % 69.3 % (38.7-73.9); Platelet Count 421 T/CUMM (130-400); Red Blood Count 4.94 MC/CUMM (3.8-5.5); Red Cell Distribution Width 17.4 % (9.3-17.3); White Blood Count 20.5 T/CUMM (4-12)
[2022-07-16 05:39] LABS: Calcium 8.9 MG/DL (8.5-10.1); Osmolality,Calculated 303.8 MOS/KG (273-304); Potassium 3.9 MMOL/L (3.5-5.1)
[2022-07-16 05:55] LABS: Lymphocytes 26 % (20-55); Platelet Estimate Normal; Total Cells Counted 100
[2022-07-16 08:10] LABS: PT Patient Result 10.9 SECS (10.1-12.1)
[2022-07-16] MEDS: LACTATED RINGERS 1,000 ML IV SCH ×2 (09:38→19:40)
[2022-07-16 09:47] LABS: Basophils % 0.2 % (0.0-0.8); Eosinophils % 0.1 % (0.00-10.9); Hematocrit 47.3 VOL% (42.0-52.0); Hemoglobin 15.4 GM/DL (14.0-18.0); Immature Granulocytes % 1.2 %; Immature Granulocytes Absolute 0.25 #; Lymphocytes # 4.5 10*3/uL (1.4-4.0); Mean Corpuscular HGB Conc 32.6 GM/DL (32-36); Mean Corpuscular Volume 102.4 FL (87-102); Mean Platelet Volume 9.5 FL (9.6-12.0); Monocytes # 2.1 10*3/uL (0.11-0.8); Monocytes % 10.4 % (1.7-12.7); Neutrophils % 66.1 % (38.7-73.9); Platelet Count 404 T/CUMM (130-400); Red Blood Count 4.62 MC/CUMM (3.8-5.5); Red Cell Distribution Width 17.6 % (9.3-17.3); White Blood Count 20.3 T/CUMM (4-12)
[2022-07-16 10:21] LABS: Eosinophils 2 % (0-10); Lymphocytes 25 % (20-55); Total Cells Counted 100
[2022-07-16 10:22] LABS: Hypochromia Slight; Macrocytosis Slight; Polychromasia Slight; Target Cells Slight
[2022-07-16] MEDS: POTASSIUM CHLORIDE 20 MEQ TABLET PO SCH (10:33)
[2022-07-16] MEDS: PANTOPRAZOLE 40 MG TABLET PO SCH (10:33)
[2022-07-16] MEDS: DOCUSATE SODIUM 100 MG CAPSULE PO SCH ×2 (10:33→20:27)
[2022-07-16] MEDS: ASPIRIN EC 81 MG TABLET PO SCH (10:33)
[2022-07-16] MEDS: PARoxetine 20 MG TABLET PO SCH (10:33)
[2022-07-16] MEDS: buPROPion XL 150 MG TABLET PO SCH (10:33)
[2022-07-16] MEDS: RIVAROXABAN 15 MG TABLET PO SCH (17:30)
[2022-07-16] MEDS ORDERED: FAMOTIDINE 20 MG TABLET PO ONE (18:37)
[2022-07-16] MEDS: ONDANSETRON 4 MG/2 ML VIAL IV PRN (18:42)
[2022-07-16] MEDS ORDERED: METOPROLOL SUCCINATE XL 50 MG TABLET PO ONE (18:52)
[2022-07-16] MEDS: ATORVASTATIN 40 MG TABLET PO SCH (20:27)
[2022-07-16] MEDS: TAMSULOSIN 0.4 MG CAPSULE PO SCH (20:27)
[2022-07-16] MEDS: SACUBITRIL/VALSARTAN 49-51 MG TABLET PO SCH (20:27)
[2022-07-17] MEDS: MORPHINE 2 MG/1 ML SYRINGE IV PRN ×4 (02:21→23:04)
[2022-07-17] MEDS: ONDANSETRON 4 MG/2 ML VIAL IV PRN ×3 (02:26→18:35)
[2022-07-17] MEDS: LACTATED RINGERS 1,000 ML IV SCH (06:00)
[2022-07-17] MEDS ORDERED: cefTRIAXone 1,000 MG in SODIUM CHLORIDE 0.9% 100 ML IV ONE (06:00)
[2022-07-17] MEDS ORDERED: METOPROLOL SUCCINATE XL 50 MG TABLET PO ONE (06:00)
[2022-07-17] MEDS ORDERED: FAMOTIDINE 20 MG TABLET PO ONE (06:00)
[2022-07-17] MEDS: SACUBITRIL/VALSARTAN 49-51 MG TABLET PO SCH ×3 (06:09→20:19)
[2022-07-17 06:44] LABS: Basophils # 0.1 10*3/uL (0.0-0.2); Basophils % 0.5 % (0.0-0.8); Eosinophils # 0.1 10*3/uL (0.0-0.87); Eosinophils % 0.9 % (0.00-10.9); Hematocrit 47.4 VOL% (42.0-52.0); Hemoglobin 15.6 GM/DL (14.0-18.0); Immature Granulocytes % 0.4 %; Immature Granulocytes Absolute 0.05 #; Lymphocytes # 3.1 10*3/uL (1.4-4.0); Lymphocytes % 22.3 % (21.2-54.2); Mean Corpuscular HGB Conc 32.9 GM/DL (32-36); Mean Corpuscular Volume 101.3 FL (87-102); Mean Platelet Volume 9.7 FL (9.6-12.0); Monocytes # 2.4 10*3/uL (0.11-0.8); Monocytes % 17.3 % (1.7-12.7); Neutrophils % 58.6 % (38.7-73.9); Platelet Count 367 T/CUMM (130-400); Red Blood Count 4.68 MC/CUMM (3.8-5.5); Red Cell Distribution Width 17.6 % (9.3-17.3); White Blood Count 13.7 T/CUMM (4-12)
[2022-07-17 06:59] LABS: Calcium 8.8 MG/DL (8.5-10.1); Osmolality,Calculated 297.7 MOS/KG (273-304); Potassium 3.4 MMOL/L (3.5-5.1)
[2022-07-17] MEDS ORDERED: SEVOFLURANE 1 UNIT/15 MINUTE INH ONE (07:06)
[2022-07-17] MEDS ORDERED: ONDANSETRON 4 MG/2 ML VIAL ONE (07:06)
[2022-07-17] MEDS ORDERED: MIDAZOLAM 2 MG/2 ML VIAL ONE (07:06)
[2022-07-17] MEDS ORDERED: propofoL 200 MG/20 ML VIAL IV ONE (07:06)
[2022-07-17] MEDS ORDERED: fentaNYL 100 MCG/2 ML VIAL ONE (07:06)
[2022-07-17] MEDS ORDERED: LIDOCAINE 2% 5 ML VIAL ONE (07:06)
[2022-07-17 07:09] LABS: Eosinophils 3 % (0-10); Lymphocytes 21 % (20-55); Platelet Estimate Normal; Total Cells Counted 100
[2022-07-17 07:10] LABS: Macrocytosis 1+; Spherocytes Few; Target Cells 1+
[2022-07-17] MEDS ORDERED: diphenhydrAMINE 50 MG/1 ML VIAL IV PRN (07:27)
[2022-07-17] MEDS ORDERED: MEPERIDINE 25 MG/1 ML VIAL IV PRN (07:27)
[2022-07-17] MEDS ORDERED: PROMETHAZINE INJ 25 MG in SODIUM CHLORIDE 0.9% 50 ML IV PRN (07:27)
[2022-07-17] MEDS ORDERED: HYDROmorphone 1 MG/1 ML SYRINGE IV PRN (07:27)
[2022-07-17] MEDS ORDERED: ONDANSETRON 4 MG/2 ML VIAL IV PRN (07:27)
[2022-07-17] MEDS ORDERED: POTASSIUM CHLORIDE 20 MEQ TABLET PO ONE (08:58)
[2022-07-17] MEDS: POTASSIUM CHLORIDE 20 MEQ TABLET PO SCH (09:08)
[2022-07-17] MEDS: DOCUSATE SODIUM 100 MG CAPSULE PO SCH ×2 (09:09→20:19)
[2022-07-17] MEDS: ASPIRIN EC 81 MG TABLET PO SCH (09:09)
[2022-07-17] MEDS: buPROPion XL 150 MG TABLET PO SCH (09:09)
[2022-07-17] MEDS: PARoxetine 20 MG TABLET PO SCH (09:09)
[2022-07-17] MEDS: PANTOPRAZOLE 40 MG TABLET PO SCH (09:09)
[2022-07-17] MEDS: LEVOFLOXACIN INJ 750 MG/150 ML PREMIX IV SCH (09:14)
[2022-07-17] MEDS ORDERED: MAGNESIUM SULF RIDER 2 GM/50 ML PREMIX IV ONE (12:54)
[2022-07-17] MEDS ORDERED: RIVAROXABAN 15 MG TABLET PO SCH (17:00)
[2022-07-17] MEDS: RIVAROXABAN 15 MG TABLET PO SCH (17:28)
[2022-07-17] MEDS: ATORVASTATIN 40 MG TABLET PO SCH (20:19)
[2022-07-17] MEDS: PROMETHAZINE 25 MG TABLET PO PRN (20:29)
[2022-07-17] MEDS: TAMSULOSIN 0.4 MG CAPSULE PO SCH (21:27)
[2022-07-18] MEDS: LACTATED RINGERS 1,000 ML IV SCH ×3 (02:51→20:45)
[2022-07-18] MEDS: MORPHINE 2 MG/1 ML SYRINGE IV PRN ×3 (03:02→20:56)
[2022-07-18] MEDS ORDERED: METOPROLOL SUCCINATE XL 50 MG TABLET PO SCH (06:00)
[2022-07-18 07:24] LABS: Basophils # 0.1 10*3/uL (0.0-0.2); Basophils % 0.9 % (0.0-0.8); Eosinophils # 0.2 10*3/uL (0.0-0.87); Eosinophils % 1.7 % (0.00-10.9); Hematocrit 49.9 VOL% (42.0-52.0); Hemoglobin 16.1 GM/DL (14.0-18.0); Immature Granulocytes % 0.5 %; Immature Granulocytes Absolute 0.06 #; Lymphocytes # 4.3 10*3/uL (1.4-4.0); Lymphocytes % 34.9 % (21.2-54.2); Mean Corpuscular HGB Conc 32.3 GM/DL (32-36); Mean Corpuscular Volume 101.6 FL (87-102); Mean Platelet Volume 10.3 FL (9.6-12.0); Monocytes # 2.3 10*3/uL (0.11-0.8); Monocytes % 18.6 % (1.7-12.7); Neutrophils % 43.4 % (38.7-73.9); Platelet Count 359 T/CUMM (130-400); Red Blood Count 4.91 MC/CUMM (3.8-5.5); Red Cell Distribution Width 17.4 % (9.3-17.3); White Blood Count 12.5 T/CUMM (4-12)
[2022-07-18 07:49] LABS: Calcium 8.7 MG/DL (8.5-10.1); Osmolality,Calculated 293.1 MOS/KG (273-304); Potassium 3.4 MMOL/L (3.5-5.1)
[2022-07-18 07:52] LABS: Anisocytosis 1+; Band Neutrophils 2 % (0-10); Eosinophils 1 % (0-10); Lymphocytes 33 % (20-55); Macrocytosis 1+; Platelet Estimate Normal; Target Cells Few; Total Cells Counted 100
[2022-07-18] MEDS: ASPIRIN EC 81 MG TABLET PO SCH (08:42)
[2022-07-18] MEDS: POTASSIUM CHLORIDE 20 MEQ TABLET PO SCH (08:42)
[2022-07-18] MEDS: PARoxetine 20 MG TABLET PO SCH (08:42)
[2022-07-18] MEDS: buPROPion XL 150 MG TABLET PO SCH (08:42)
[2022-07-18] MEDS: DOCUSATE SODIUM 100 MG CAPSULE PO SCH ×2 (08:42→20:54)
[2022-07-18] MEDS: PANTOPRAZOLE 40 MG TABLET PO SCH (08:43)
[2022-07-18] MEDS: METOPROLOL SUCCINATE XL 50 MG TABLET PO SCH (08:43)
[2022-07-18] MEDS: metOLazone 5 MG TABLET PO SCH (08:43)
[2022-07-18] MEDS: SACUBITRIL/VALSARTAN 49-51 MG TABLET PO SCH ×2 (08:43→20:54)
[2022-07-18] MEDS: ONDANSETRON 4 MG/2 ML VIAL IV PRN ×2 (08:45→14:55)
[2022-07-18] MEDS ORDERED: MAGNESIUM SULF RIDER 2 GM/50 ML PREMIX IV ONE (12:29)
[2022-07-18] MEDS: RIVAROXABAN 15 MG TABLET PO SCH (17:41)
[2022-07-18] MEDS: POTASSIUM CHLORIDE 20 MEQ TABLET PO PRN (20:54)
[2022-07-18] MEDS: PROMETHAZINE 25 MG TABLET PO PRN (20:54)
[2022-07-18] MEDS: TAMSULOSIN 0.4 MG CAPSULE PO SCH (20:54)
[2022-07-18] MEDS: ATORVASTATIN 40 MG TABLET PO SCH (20:54)
[2022-07-19] MEDS: PROMETHAZINE 25 MG TABLET PO PRN ×2 (04:21→10:47)
[2022-07-19] MEDS: MORPHINE 2 MG/1 ML SYRINGE IV PRN ×2 (04:22→10:48)
[2022-07-19 06:25] LABS: Basophils # 0.1 10*3/uL (0.0-0.2); Basophils % 0.8 % (0.0-0.8); Eosinophils # 0.6 10*3/uL (0.0-0.87); Eosinophils % 4.9 % (0.00-10.9); Hematocrit 48.7 VOL% (42.0-52.0); Hemoglobin 16.1 GM/DL (14.0-18.0); Immature Granulocytes % 0.3 %; Immature Granulocytes Absolute 0.03 #; Lymphocytes % 33.8 % (21.2-54.2); Mean Corpuscular HGB Conc 33.1 GM/DL (32-36); Mean Corpuscular Volume 100.8 FL (87-102); Mean Platelet Volume 10.4 FL (9.6-12.0); Monocytes # 1.8 10*3/uL (0.11-0.8); Monocytes % 14.7 % (1.7-12.7); Neutrophils % 45.5 % (38.7-73.9); Platelet Count 345 T/CUMM (130-400); Red Blood Count 4.83 MC/CUMM (3.8-5.5); White Blood Count 11.9 T/CUMM (4-12)
[2022-07-19] MEDS: LACTATED RINGERS 1,000 ML IV SCH (06:39)
[2022-07-19 06:53] LABS: Calcium 9.2 MG/DL (8.5-10.1); Osmolality,Calculated 290.8 MOS/KG (273-304); Potassium 4.1 MMOL/L (3.5-5.1)
[2022-07-19] MEDS: PANTOPRAZOLE 40 MG TABLET PO SCH (08:51)
[2022-07-19] MEDS: DOCUSATE SODIUM 100 MG CAPSULE PO SCH (08:51)
[2022-07-19] MEDS: LEVOFLOXACIN INJ 750 MG/150 ML PREMIX IV SCH (08:51)
[2022-07-19] MEDS: POTASSIUM CHLORIDE 20 MEQ TABLET PO SCH (08:51)
[2022-07-19] MEDS: ASPIRIN EC 81 MG TABLET PO SCH (08:51)
[2022-07-19] MEDS: PARoxetine 20 MG TABLET PO SCH (08:51)
[2022-07-19] MEDS: buPROPion XL 150 MG TABLET PO SCH (08:51)
[2022-07-19] MEDS: SACUBITRIL/VALSARTAN 49-51 MG TABLET PO SCH (08:55)
[2022-07-19] MEDS: METOPROLOL SUCCINATE XL 50 MG TABLET PO SCH (08:56)
[2022-07-19] MEDS: metOLazone 5 MG TABLET PO SCH (08:56)
[2022-07-19 12:30] VITALS: BP 95/59
== END 2022-07-19 16:38 | disposition home or self-care (01) ==
LOC: N.ED 21:51 → N.5E 21:51 → SUATTDRO 07-15 02:30 → N.5E 07-15 03:55
PROVIDERS: ADMIT Internal Medicine; ATTEND Hospitalist

== ENCOUNTER 2022-07-27 15:35 | Inpatient (IN) ==
[2022-07-27] MEDS ORDERED: ONDANSETRON 4 MG/2 ML VIAL IV PRN ×2 (18:52→20:50)
[2022-07-27] MEDS ORDERED: SODIUM CHLORIDE 0.9% 1,000 ML IV STA (18:52)
[2022-07-27 19:21] LABS: Basophils # 0.1 10*3/uL (0.0-0.2); Basophils % 1.1 % (0.0-0.8); Eosinophils # 0.6 10*3/uL (0.0-0.87); Eosinophils % 5.1 % (0.00-10.9); Hematocrit 46.4 VOL% (42.0-52.0); Hemoglobin 15.6 GM/DL (14.0-18.0); Immature Granulocytes % 0.4 %; Immature Granulocytes Absolute 0.05 #; Lymphocytes # 4.7 10*3/uL (1.4-4.0); Lymphocytes % 38.7 % (21.2-54.2); Mean Corpuscular HGB Conc 33.6 GM/DL (32-36); Mean Corpuscular Volume 98.1 FL (87-102); Mean Platelet Volume 9.2 FL (9.6-12.0); Monocytes # 1.2 10*3/uL (0.11-0.8); Monocytes % 9.6 % (1.7-12.7); Neutrophils % 45.1 % (38.7-73.9); Platelet Count 362 T/CUMM (130-400); Red Blood Count 4.73 MC/CUMM (3.8-5.5); White Blood Count 12.2 T/CUMM (4-12)
[2022-07-27 19:25] LABS: Glucose,Urine (UA) Negative (Negative); Ketones,Urine Trace mg/dL (Negative); Nitrite,Urine Positive (Negative); Protein,Urine >=300 mg/dL (Negative); RBC,Urine 752 /HPF (0-4); Urine Appearance Turbid (Clear); Urine Color Red (Yellow)
[2022-07-27 19:26] LABS: Bilirubin,Urine Moderate mg/dL (Negative); Blood, Urine Large mg/dL (Negative)
[2022-07-27 19:38] LABS: Alanine Aminotransferase 9 U/L (16-61); Albumin 2.9 G/DL (3.4-5.0); Alkaline Phosphatase 79 U/L (45-117); Aspartate Amino Transferase 10 U/L (0-37); Bilirubin,Total < 0.39 MG/DL (0.20-1.00); Blood Urea Nitrogen 31 MG/DL (7-18); Calcium 8.2 MG/DL (8.5-10.1); Carbon Dioxide 25 MMOL/L (21-32); Chloride 107 MMOL/L (98-107); Glucose 99 MG/DL (74-106); Osmolality,Calculated 287.3 MOS/KG (273-304); Potassium 3.6 MMOL/L (3.5-5.1); Sodium 141 MMOL/L (136-145); Total Protein 7.7 G/DL (6.4-8.2)
[2022-07-27 19:45] LABS: Anisocytosis 1+; Band Neutrophils 1 % (0-10); Eosinophils 9 % (0-10); Lymphocytes 36 % (20-55); Platelet Estimate Normal; Total Cells Counted 100
[2022-07-27] MEDS ORDERED: cefTRIAXone 1,000 MG in SODIUM CHLORIDE 0.9% 100 ML IV STA (20:12)
[2022-07-27] MEDS ORDERED: MORPHINE 2 MG/1 ML SYRINGE IV PRN (20:50)
[2022-07-27] MEDS ORDERED: LORATADINE 10 MG TABLET PO PRN (21:00)
[2022-07-27] MEDS ORDERED: SODIUM CHLORIDE 0.9% 1,000 ML IV SCH (21:00)
[2022-07-27] MEDS ORDERED: NICOTINE 21 MG/24 HR PATCH TRANSDERM PRN (21:00)
[2022-07-27] MEDS ORDERED: LEVOFLOXACIN INJ 750 MG/150 ML PREMIX IV SCH (21:30)
[2022-07-27] MEDS: TAMSULOSIN 0.4 MG CAPSULE PO SCH (21:43)
[2022-07-27] MEDS: METOPROLOL SUCCINATE XL 25 MG TABLET PO SCH (21:43)
[2022-07-27] MEDS: SACUBITRIL/VALSARTAN 49-51 MG TABLET PO SCH (21:43)
[2022-07-27] MEDS: ATORVASTATIN 40 MG TABLET PO SCH (21:43)
[2022-07-27] MEDS ORDERED: MORPHINE 2 MG/1 ML SYRINGE IV STA (22:23)
[2022-07-28] MEDS: BUDESONIDE/FORMOTEROL 80-4.5 INHALER 6.9 GM INH SCH ×3 (00:39→20:59)
[2022-07-28 06:46] LABS: Basophils # 0.1 10*3/uL (0.0-0.2); Basophils % 1.1 % (0.0-0.8); Eosinophils # 0.6 10*3/uL (0.0-0.87); Eosinophils % 6.9 % (0.00-10.9); Hematocrit 47.5 VOL% (42.0-52.0); Hemoglobin 15.5 GM/DL (14.0-18.0); Immature Granulocytes % 0.2 %; Immature Granulocytes Absolute 0.02 #; Lymphocytes # 3.8 10*3/uL (1.4-4.0); Lymphocytes % 40.9 % (21.2-54.2); Mean Corpuscular HGB Conc 32.6 GM/DL (32-36); Mean Corpuscular Volume 100.4 FL (87-102); Mean Platelet Volume 9.1 FL (9.6-12.0); Monocytes # 0.9 10*3/uL (0.11-0.8); Monocytes % 9.8 % (1.7-12.7); Neutrophils % 41.1 % (38.7-73.9); Platelet Count 347 T/CUMM (130-400); Red Blood Count 4.73 MC/CUMM (3.8-5.5); Red Cell Distribution Width 17.3 % (9.3-17.3); White Blood Count 9.2 T/CUMM (4-12)
[2022-07-28 07:09] LABS: Albumin 2.7 G/DL (3.4-5.0); Bilirubin,Total 0.4 MG/DL (0.20-1.00); Calcium 8.6 MG/DL (8.5-10.1); Osmolality,Calculated 291.8 MOS/KG (273-304); Potassium 3.1 MMOL/L (3.5-5.1); Total Protein 7.1 G/DL (6.4-8.2)
[2022-07-28] MEDS ORDERED: POTASSIUM CHLORIDE 20 MEQ TABLET PO ONE (07:34)
[2022-07-28] MEDS ORDERED: cefTRIAXone 1,000 MG in SODIUM CHLORIDE 0.9% 100 ML IV ONE (07:40)
[2022-07-28] MEDS: SODIUM CHLOR 0.9% KCL 20 MEQ 20 MEQ/1,000 ML BAG IV SCH (08:02)
[2022-07-28] MEDS: PANTOPRAZOLE 40 MG TABLET PO SCH (09:18)
[2022-07-28] MEDS: METOPROLOL SUCCINATE XL 25 MG TABLET PO SCH (09:18)
[2022-07-28] MEDS: MULTIVITAMIN (CENTRUM) TABLET PO SCH (09:26)
[2022-07-28] MEDS: SACUBITRIL/VALSARTAN 49-51 MG TABLET PO SCH ×2 (09:26→20:58)
[2022-07-28] MEDS: POTASSIUM CHLORIDE 20 MEQ TABLET PO SCH (09:26)
[2022-07-28] MEDS: ASPIRIN EC 81 MG TABLET PO SCH (09:26)
[2022-07-28] MEDS: PARoxetine 20 MG TABLET PO SCH (10:00)
[2022-07-28] MEDS: metOLazone 5 MG TABLET PO SCH (10:00)
[2022-07-28] MEDS: buPROPion XL 150 MG TABLET PO SCH (10:00)
[2022-07-28] MEDS ORDERED: MIDAZOLAM 2 MG/2 ML VIAL ONE (13:28)
[2022-07-28] MEDS ORDERED: fentaNYL 100 MCG/2 ML VIAL ONE (13:28)
[2022-07-28] MEDS ORDERED: propofoL 200 MG/20 ML VIAL IV ONE (13:28)
[2022-07-28] MEDS ORDERED: LIDOCAINE 2% 5 ML VIAL ONE (13:28)
[2022-07-28] MEDS ORDERED: LACTATED RINGERS 1,000 ML IV ONE (15:03)
[2022-07-28] MEDS ORDERED: ONDANSETRON 4 MG/2 ML VIAL ONE (15:27)
[2022-07-28] MEDS ORDERED: MEPERIDINE 25 MG/1 ML VIAL ONE (15:40)
[2022-07-28] MEDS ORDERED: PROMETHAZINE 25 MG/1 ML VIAL ONE (15:40)
[2022-07-28] MEDS ORDERED: PROMETHAZINE INJ 25 MG in SODIUM CHLORIDE 0.9% 50 ML IV PRN (15:44)
[2022-07-28] MEDS: MEPERIDINE 25 MG/1 ML VIAL IV PRN ×2 (15:45→16:01)
[2022-07-28] MEDS ORDERED: RIVAROXABAN 15 MG TABLET PO SCH (17:00)
[2022-07-28] MEDS: ATORVASTATIN 40 MG TABLET PO SCH (20:58)
[2022-07-28] MEDS: TAMSULOSIN 0.4 MG CAPSULE PO SCH (20:59)
[2022-07-28] MEDS: cefTRIAXone 1,000 MG in SODIUM CHLORIDE 0.9% 100 ML IV SCH (21:06)
[2022-07-29] MEDS: SODIUM CHLOR 0.9% KCL 20 MEQ 20 MEQ/1,000 ML BAG IV SCH ×2 (03:00→16:08)
[2022-07-29 07:04] LABS: Basophils # 0.1 10*3/uL (0.0-0.2); Basophils % 0.8 % (0.0-0.8); Eosinophils # 0.5 10*3/uL (0.0-0.87); Eosinophils % 5.3 % (0.00-10.9); Hematocrit 47.2 VOL% (42.0-52.0); Hemoglobin 15.6 GM/DL (14.0-18.0); Immature Granulocytes % 0.4 %; Immature Granulocytes Absolute 0.03 #; Lymphocytes # 3.2 10*3/uL (1.4-4.0); Lymphocytes % 37.7 % (21.2-54.2); Mean Corpuscular HGB Conc 33.1 GM/DL (32-36); Mean Corpuscular Volume 101.9 FL (87-102); Mean Platelet Volume 9.7 FL (9.6-12.0); Monocytes # 0.9 10*3/uL (0.11-0.8); Monocytes % 10.6 % (1.7-12.7); Neutrophils % 45.2 % (38.7-73.9); Platelet Count 371 T/CUMM (130-400); Red Blood Count 4.63 MC/CUMM (3.8-5.5); Red Cell Distribution Width 17.5 % (9.3-17.3); White Blood Count 8.5 T/CUMM (4-12)
[2022-07-29 07:22] LABS: Calcium 8.6 MG/DL (8.5-10.1); Osmolality,Calculated 295.6 MOS/KG (273-304); Potassium 4.1 MMOL/L (3.5-5.1)
[2022-07-29] MEDS: MORPHINE 2 MG/1 ML SYRINGE IV PRN ×3 (07:45→22:03)
[2022-07-29] MEDS: buPROPion XL 150 MG TABLET PO SCH (09:12)
[2022-07-29] MEDS: SACUBITRIL/VALSARTAN 49-51 MG TABLET PO SCH ×2 (09:12→21:54)
[2022-07-29] MEDS: ASPIRIN EC 81 MG TABLET PO SCH (09:12)
[2022-07-29] MEDS: metOLazone 5 MG TABLET PO SCH (09:12)
[2022-07-29] MEDS: POTASSIUM CHLORIDE 20 MEQ TABLET PO SCH (09:12)
[2022-07-29] MEDS: MULTIVITAMIN (CENTRUM) TABLET PO SCH (09:12)
[2022-07-29] MEDS: PANTOPRAZOLE 40 MG TABLET PO SCH (09:13)
[2022-07-29] MEDS: PARoxetine 20 MG TABLET PO SCH (09:13)
[2022-07-29] MEDS: BUDESONIDE/FORMOTEROL 80-4.5 INHALER 6.9 GM INH SCH ×2 (09:15→21:55)
[2022-07-29] MEDS: ATORVASTATIN 40 MG TABLET PO SCH (21:54)
[2022-07-29] MEDS: cefTRIAXone 1,000 MG in SODIUM CHLORIDE 0.9% 100 ML IV SCH (21:55)
[2022-07-29] MEDS: TAMSULOSIN 0.4 MG CAPSULE PO SCH (21:55)
[2022-07-30] MEDS: MORPHINE 2 MG/1 ML SYRINGE IV PRN ×4 (02:34→21:26)
[2022-07-30] MEDS: SODIUM CHLOR 0.9% KCL 20 MEQ 20 MEQ/1,000 ML BAG IV SCH ×2 (06:02→21:25)
[2022-07-30 06:18] LABS: Basophils # 0.1 10*3/uL (0.0-0.2); Basophils % 0.7 % (0.0-0.8); Eosinophils # 0.4 10*3/uL (0.0-0.87); Eosinophils % 2.9 % (0.00-10.9); Hematocrit 50.3 VOL% (42.0-52.0); Hemoglobin 16.1 GM/DL (14.0-18.0); Immature Granulocytes % 0.2 %; Immature Granulocytes Absolute 0.03 #; Lymphocytes # 3.8 10*3/uL (1.4-4.0); Lymphocytes % 30.6 % (21.2-54.2); Mean Corpuscular Volume 100.6 FL (87-102); Mean Platelet Volume 9.3 FL (9.6-12.0); Monocytes # 1.4 10*3/uL (0.11-0.8); Monocytes % 10.8 % (1.7-12.7); Neutrophils % 54.8 % (38.7-73.9); Platelet Count 388 T/CUMM (130-400); Red Cell Distribution Width 17.4 % (9.3-17.3); White Blood Count 12.5 T/CUMM (4-12)
[2022-07-30 06:33] LABS: Calcium 8.6 MG/DL (8.5-10.1); Osmolality,Calculated 293.4 MOS/KG (273-304); Potassium 3.7 MMOL/L (3.5-5.1)
[2022-07-30] MEDS: PARoxetine 20 MG TABLET PO SCH (09:11)
[2022-07-30] MEDS: metOLazone 5 MG TABLET PO SCH (09:12)
[2022-07-30] MEDS: ASPIRIN EC 81 MG TABLET PO SCH (09:12)
[2022-07-30] MEDS: buPROPion XL 150 MG TABLET PO SCH (09:12)
[2022-07-30] MEDS: PANTOPRAZOLE 40 MG TABLET PO SCH (09:12)
[2022-07-30] MEDS: SACUBITRIL/VALSARTAN 49-51 MG TABLET PO SCH ×2 (09:12→21:23)
[2022-07-30] MEDS: MULTIVITAMIN (CENTRUM) TABLET PO SCH (09:12)
[2022-07-30] MEDS: POTASSIUM CHLORIDE 20 MEQ TABLET PO SCH (09:13)
[2022-07-30] MEDS: BUDESONIDE/FORMOTEROL 80-4.5 INHALER 6.9 GM INH SCH ×2 (09:15→21:26)
[2022-07-30 14:43] LABS: Basophils # 0.1 10*3/uL (0.0-0.2); Basophils % 0.9 % (0.0-0.8); Eosinophils # 0.2 10*3/uL (0.0-0.87); Eosinophils % 2.1 % (0.00-10.9); Hematocrit 49.1 VOL% (42.0-52.0); Hemoglobin 16.2 GM/DL (14.0-18.0); Immature Granulocytes % 0.3 %; Immature Granulocytes Absolute 0.03 #; Lymphocytes % 26.6 % (21.2-54.2); Mean Corpuscular Volume 99.4 FL (87-102); Mean Platelet Volume 8.8 FL (9.6-12.0); Monocytes % 9.3 % (1.7-12.7); Neutrophils % 60.8 % (38.7-73.9); Platelet Count 391 T/CUMM (130-400); Red Blood Count 4.94 MC/CUMM (3.8-5.5); Red Cell Distribution Width 17.3 % (9.3-17.3); White Blood Count 11.1 T/CUMM (4-12)
[2022-07-30 14:57] LABS: Calcium 8.7 MG/DL (8.5-10.1); Potassium 4.2 MMOL/L (3.5-5.1)
[2022-07-30] MEDS: MEROPENEM 500 MG in SODIUM CHLORIDE 0.9% 100 ML IV SCH ×2 (16:57→23:06)
[2022-07-30] MEDS: TAMSULOSIN 0.4 MG CAPSULE PO SCH (21:23)
[2022-07-30] MEDS: ATORVASTATIN 40 MG TABLET PO SCH (21:23)
[2022-07-31] MEDS: MORPHINE 2 MG/1 ML SYRINGE IV PRN ×5 (02:02→20:30)
[2022-07-31] MEDS: MEROPENEM 500 MG in SODIUM CHLORIDE 0.9% 100 ML IV SCH ×4 (05:01→23:10)
[2022-07-31 06:10] LABS: Basophils # 0.1 10*3/uL (0.0-0.2); Basophils % 0.7 % (0.0-0.8); Eosinophils # 0.4 10*3/uL (0.0-0.87); Eosinophils % 3.1 % (0.00-10.9); Hematocrit 47.5 VOL% (42.0-52.0); Hemoglobin 15.9 GM/DL (14.0-18.0); Immature Granulocytes % 0.3 %; Immature Granulocytes Absolute 0.03 #; Lymphocytes # 3.4 10*3/uL (1.4-4.0); Lymphocytes % 28.5 % (21.2-54.2); Mean Corpuscular HGB Conc 33.5 GM/DL (32-36); Mean Platelet Volume 9.3 FL (9.6-12.0); Monocytes # 1.3 10*3/uL (0.11-0.8); Monocytes % 11.3 % (1.7-12.7); Neutrophils % 56.1 % (38.7-73.9); Platelet Count 392 T/CUMM (130-400); Red Blood Count 4.75 MC/CUMM (3.8-5.5); Red Cell Distribution Width 17.4 % (9.3-17.3); White Blood Count 11.8 T/CUMM (4-12)
[2022-07-31 06:25] LABS: Calcium 8.9 MG/DL (8.5-10.1)
[2022-07-31] MEDS: PARoxetine 20 MG TABLET PO SCH (09:18)
[2022-07-31] MEDS: POTASSIUM CHLORIDE 20 MEQ TABLET PO SCH (09:18)
[2022-07-31] MEDS: buPROPion XL 150 MG TABLET PO SCH (09:18)
[2022-07-31] MEDS: metOLazone 5 MG TABLET PO SCH (09:18)
[2022-07-31] MEDS: SACUBITRIL/VALSARTAN 49-51 MG TABLET PO SCH ×2 (09:18→20:28)
[2022-07-31] MEDS: PANTOPRAZOLE 40 MG TABLET PO SCH (09:19)
[2022-07-31] MEDS: MULTIVITAMIN (CENTRUM) TABLET PO SCH (09:19)
[2022-07-31] MEDS: BUDESONIDE/FORMOTEROL 80-4.5 INHALER 6.9 GM INH SCH ×2 (09:19→20:28)
[2022-07-31] MEDS: SODIUM CHLOR 0.9% KCL 20 MEQ 20 MEQ/1,000 ML BAG IV SCH (09:20)
[2022-07-31] MEDS: TAMSULOSIN 0.4 MG CAPSULE PO SCH (20:28)
[2022-07-31] MEDS: ATORVASTATIN 40 MG TABLET PO SCH (20:28)
[2022-07-31] MEDS ORDERED: OXYBUTYNIN 5 MG TABLET PO SCH (21:00)
[2022-08-01] MEDS: MORPHINE 2 MG/1 ML SYRINGE IV PRN ×5 (00:38→20:17)
[2022-08-01] MEDS: SODIUM CHLOR 0.9% KCL 20 MEQ 20 MEQ/1,000 ML BAG IV SCH ×2 (03:10→11:30)
[2022-08-01] MEDS: MEROPENEM 500 MG in SODIUM CHLORIDE 0.9% 100 ML IV SCH ×3 (05:02→17:30)
[2022-08-01 06:01] LABS: Basophils # 0.1 10*3/uL (0.0-0.2); Eosinophils # 0.5 10*3/uL (0.0-0.87); Eosinophils % 4.8 % (0.00-10.9); Hematocrit 46.8 VOL% (42.0-52.0); Hemoglobin 15.3 GM/DL (14.0-18.0); Immature Granulocytes % 0.5 %; Immature Granulocytes Absolute 0.05 #; Lymphocytes # 3.6 10*3/uL (1.4-4.0); Lymphocytes % 34.2 % (21.2-54.2); Mean Corpuscular HGB Conc 32.7 GM/DL (32-36); Mean Corpuscular Volume 98.9 FL (87-102); Mean Platelet Volume 9.5 FL (9.6-12.0); Monocytes # 1.5 10*3/uL (0.11-0.8); Monocytes % 14.3 % (1.7-12.7); Neutrophils % 45.2 % (38.7-73.9); Platelet Count 408 T/CUMM (130-400); Red Blood Count 4.73 MC/CUMM (3.8-5.5); Red Cell Distribution Width 17.4 % (9.3-17.3); White Blood Count 10.6 T/CUMM (4-12)
[2022-08-01 06:21] LABS: Calcium 8.9 MG/DL (8.5-10.1); Osmolality,Calculated 282.4 MOS/KG (273-304)
[2022-08-01] MEDS: SACUBITRIL/VALSARTAN 49-51 MG TABLET PO SCH ×2 (08:42→20:18)
[2022-08-01] MEDS: POTASSIUM CHLORIDE 20 MEQ TABLET PO SCH (08:42)
[2022-08-01] MEDS: BUDESONIDE/FORMOTEROL 80-4.5 INHALER 6.9 GM INH SCH ×2 (08:42→20:40)
[2022-08-01] MEDS: metOLazone 5 MG TABLET PO SCH (08:42)
[2022-08-01] MEDS: PARoxetine 20 MG TABLET PO SCH (08:42)
[2022-08-01] MEDS: buPROPion XL 150 MG TABLET PO SCH (08:42)
[2022-08-01] MEDS: MULTIVITAMIN (CENTRUM) TABLET PO SCH (08:42)
[2022-08-01] MEDS: PANTOPRAZOLE 40 MG TABLET PO SCH (08:42)
[2022-08-01] MEDS ORDERED: FAMOTIDINE 20 MG TABLET PO ONE (18:36)
[2022-08-01] MEDS: TAMSULOSIN 0.4 MG CAPSULE PO SCH (20:19)
[2022-08-01] MEDS: ATORVASTATIN 40 MG TABLET PO SCH (20:19)
[2022-08-02] MEDS: MEROPENEM 500 MG in SODIUM CHLORIDE 0.9% 100 ML IV SCH ×2 (00:18→05:14)
[2022-08-02] MEDS: MORPHINE 2 MG/1 ML SYRINGE IV PRN ×5 (02:37→23:18)
[2022-08-02 05:48] LABS: Basophils # 0.1 10*3/uL (0.0-0.2); Eosinophils # 0.6 10*3/uL (0.0-0.87); Eosinophils % 5.3 % (0.00-10.9); Hematocrit 44.8 VOL% (42.0-52.0); Hemoglobin 15.1 GM/DL (14.0-18.0); Immature Granulocytes % 0.3 %; Immature Granulocytes Absolute 0.03 #; Lymphocytes # 2.5 10*3/uL (1.4-4.0); Lymphocytes % 24.1 % (21.2-54.2); Mean Corpuscular HGB Conc 33.7 GM/DL (32-36); Mean Corpuscular Volume 99.1 FL (87-102); Mean Platelet Volume 9.6 FL (9.6-12.0); Monocytes # 1.2 10*3/uL (0.11-0.8); Monocytes % 11.4 % (1.7-12.7); Neutrophils % 57.9 % (38.7-73.9); Platelet Count 402 T/CUMM (130-400); Red Blood Count 4.52 MC/CUMM (3.8-5.5); Red Cell Distribution Width 16.7 % (9.3-17.3); White Blood Count 10.5 T/CUMM (4-12)
[2022-08-02 06:02] LABS: Calcium 8.8 MG/DL (8.5-10.1); Osmolality,Calculated 282.5 MOS/KG (273-304); Potassium 3.9 MMOL/L (3.5-5.1)
[2022-08-02] MEDS: MULTIVITAMIN (CENTRUM) TABLET PO SCH (08:50)
[2022-08-02] MEDS: buPROPion XL 150 MG TABLET PO SCH (08:50)
[2022-08-02] MEDS: SACUBITRIL/VALSARTAN 49-51 MG TABLET PO SCH ×2 (08:50→20:38)
[2022-08-02] MEDS: PARoxetine 20 MG TABLET PO SCH (08:50)
[2022-08-02] MEDS: metOLazone 5 MG TABLET PO SCH (08:50)
[2022-08-02] MEDS: PANTOPRAZOLE 40 MG TABLET PO SCH (08:50)
[2022-08-02] MEDS: SODIUM CHLOR 0.9% KCL 20 MEQ 20 MEQ/1,000 ML BAG IV SCH (08:50)
[2022-08-02] MEDS: POTASSIUM CHLORIDE 20 MEQ TABLET PO SCH (08:50)
[2022-08-02] MEDS: BUDESONIDE/FORMOTEROL 80-4.5 INHALER 6.9 GM INH SCH ×2 (08:51→20:38)
[2022-08-02] MEDS: CIPROFLOXACIN INJ 400 MG/200 ML PREMIX IV SCH ×2 (10:35→20:34)
[2022-08-02] MEDS: ATORVASTATIN 40 MG TABLET PO SCH (20:36)
[2022-08-02] MEDS: TAMSULOSIN 0.4 MG CAPSULE PO SCH (20:38)
[2022-08-03] MEDS: SODIUM CHLOR 0.9% KCL 20 MEQ 20 MEQ/1,000 ML BAG IV SCH ×3 (00:35→18:33)
[2022-08-03] MEDS: MORPHINE 2 MG/1 ML SYRINGE IV PRN ×2 (05:48→12:30)
[2022-08-03 06:00] LABS: Basophils # 0.1 10*3/uL (0.0-0.2); Basophils % 0.4 % (0.0-0.8); Eosinophils # 0.4 10*3/uL (0.0-0.87); Eosinophils % 2.9 % (0.00-10.9); Hematocrit 48.8 VOL% (42.0-52.0); Hemoglobin 16.2 GM/DL (14.0-18.0); Immature Granulocytes % 0.4 %; Immature Granulocytes Absolute 0.06 #; Lymphocytes # 2.1 10*3/uL (1.4-4.0); Lymphocytes % 14.6 % (21.2-54.2); Mean Corpuscular HGB Conc 33.2 GM/DL (32-36); Mean Corpuscular Volume 100.4 FL (87-102); Mean Platelet Volume 9.7 FL (9.6-12.0); Monocytes # 1.4 10*3/uL (0.11-0.8); Monocytes % 9.7 % (1.7-12.7); Platelet Count 467 T/CUMM (130-400); Red Blood Count 4.86 MC/CUMM (3.8-5.5); Red Cell Distribution Width 16.9 % (9.3-17.3); White Blood Count 14.2 T/CUMM (4-12)
[2022-08-03] MEDS ORDERED: FAMOTIDINE 20 MG TABLET PO ONE (06:00)
[2022-08-03 06:19] LABS: Calcium 9.3 MG/DL (8.5-10.1); Osmolality,Calculated 281.5 MOS/KG (273-304); Potassium 4.4 MMOL/L (3.5-5.1)
[2022-08-03] MEDS: SACUBITRIL/VALSARTAN 49-51 MG TABLET PO SCH ×2 (08:02→20:35)
[2022-08-03] MEDS: metOLazone 5 MG TABLET PO SCH (08:02)
[2022-08-03] MEDS: CIPROFLOXACIN INJ 400 MG/200 ML PREMIX IV SCH ×2 (08:02→20:35)
[2022-08-03] MEDS: BUDESONIDE/FORMOTEROL 80-4.5 INHALER 6.9 GM INH SCH ×2 (08:25→20:35)
[2022-08-03] MEDS: SODIUM CHLORIDE 0.45% 1,000 ML IV SCH (09:00)
[2022-08-03] MEDS ORDERED: MIDAZOLAM 2 MG/2 ML VIAL IV ONE (09:21)
[2022-08-03] MEDS ORDERED: fentaNYL 100 MCG/2 ML VIAL IV ONE (09:21)
[2022-08-03] MEDS ORDERED: DIAZEPAM 5 MG TABLET PO ONE (09:21)
[2022-08-03] MEDS: AMPICILLIN/SULBACTAM 1,500 MG in SODIUM CHLORIDE 0.9% 100 ML IV SCH ×2 (09:24→18:32)
[2022-08-03] MEDS: MULTIVITAMIN (CENTRUM) TABLET PO SCH (11:24)
[2022-08-03] MEDS: POTASSIUM CHLORIDE 20 MEQ TABLET PO SCH (11:25)
[2022-08-03] MEDS: buPROPion XL 150 MG TABLET PO SCH (11:25)
[2022-08-03] MEDS: PANTOPRAZOLE 40 MG TABLET PO SCH (11:25)
[2022-08-03] MEDS: PARoxetine 20 MG TABLET PO SCH (11:25)
[2022-08-03] MEDS ORDERED: ROCURONIUM 50 MG/5 ML VIAL IV ONE (12:15)
[2022-08-03] MEDS ORDERED: propofoL 200 MG/20 ML VIAL IV ONE (12:15)
[2022-08-03] MEDS ORDERED: LIDOCAINE 2% 5 ML VIAL ONE (12:15)
[2022-08-03] MEDS ORDERED: MIDAZOLAM 2 MG/2 ML VIAL ONE (12:16)
[2022-08-03] MEDS ORDERED: fentaNYL 100 MCG/2 ML VIAL ONE (12:16)
[2022-08-03] MEDS ORDERED: ROPIVACAINE 0.5% 30 ML VIAL ONE (12:20)
[2022-08-03] MEDS ORDERED: PHENYLEPHRINE 10 MG/1 ML VIAL IV ONE (15:14)
[2022-08-03] MEDS ORDERED: METOPROLOL TARTRATE 5 MG/5 ML VIAL IV ONE (15:25)
[2022-08-03] MEDS ORDERED: ESMOLOL 100 MG/10 ML VIAL IV ONE (15:25)
[2022-08-03] MEDS ORDERED: LACTATED RINGERS 1,000 ML IV ONE ×2 (15:45→16:45)
[2022-08-03] MEDS ORDERED: ACETAMINOPHEN INJ 1,000 MG/100 ML VIAL IV ONE (15:45)
[2022-08-03] MEDS ORDERED: ONDANSETRON 4 MG/2 ML VIAL ONE (15:51)
[2022-08-03] MEDS ORDERED: GLYCOPYRROLATE 0.4 MG/2 ML VIAL ONE (15:52)
[2022-08-03] MEDS ORDERED: NEOSTIGMINE 10 MG/10 ML VIAL ONE (15:52)
[2022-08-03] MEDS ORDERED: SODIUM CHLORIDE 0.9% 100 ML IV ONE (16:14)
[2022-08-03] MEDS ORDERED: SEVOFLURANE 1 UNIT/15 MINUTE INH ONE (16:53)
[2022-08-03] MEDS ORDERED: PHENYLEPHRINE 1 MG/10 ML SYRINGE IV ONE (16:57)
[2022-08-03] MEDS ORDERED: HYDROmorphone 1 MG/1 ML SYRINGE IV PRN (17:10)
[2022-08-03 17:46] LABS: Basophils # 0.1 10*3/uL (0.0-0.2); Basophils % 0.5 % (0.0-0.8); Eosinophils # 0.3 10*3/uL (0.0-0.87); Eosinophils % 2.4 % (0.00-10.9); Hematocrit 44.8 VOL% (42.0-52.0); Hemoglobin 14.8 GM/DL (14.0-18.0); Immature Granulocytes % 0.4 %; Immature Granulocytes Absolute 0.05 #; Lymphocytes # 2.3 10*3/uL (1.4-4.0); Lymphocytes % 16.8 % (21.2-54.2); Mean Corpuscular Volume 99.8 FL (87-102); Mean Platelet Volume 9.3 FL (9.6-12.0); Monocytes # 1.2 10*3/uL (0.11-0.8); Monocytes % 8.9 % (1.7-12.7); Platelet Count 423 T/CUMM (130-400); Red Blood Count 4.49 MC/CUMM (3.8-5.5); Red Cell Distribution Width 16.9 % (9.3-17.3); White Blood Count 13.9 T/CUMM (4-12)
[2022-08-03 17:54] LABS: Calcium 8.6 MG/DL (8.5-10.1); Osmolality,Calculated 280.5 MOS/KG (273-304); Potassium 4.6 MMOL/L (3.5-5.1)
[2022-08-03] MEDS: SODIUM CHLORIDE 0.9% 1,000 ML IV SCH (18:30)
[2022-08-03] MEDS: TAMSULOSIN 0.4 MG CAPSULE PO SCH (20:34)
[2022-08-03] MEDS: ATORVASTATIN 40 MG TABLET PO SCH (20:34)
[2022-08-03] MEDS: oxyCODONE/ACETAMINOPHEN 5-325 MG TABLET PO PRN (23:12)
[2022-08-04] MEDS: HYDROmorphone 1 MG/1 ML SYRINGE IV PRN ×8 (00:23→22:38)
[2022-08-04] MEDS: AMPICILLIN/SULBACTAM 1,500 MG in SODIUM CHLORIDE 0.9% 100 ML IV SCH ×2 (02:22→09:10)
[2022-08-04] MEDS ORDERED: SODIUM CHLORIDE 0.9% 1,000 ML IV ONE (05:00)
[2022-08-04 06:10] LABS: Basophils # 0.1 10*3/uL (0.0-0.2); Basophils % 0.3 % (0.0-0.8); Eosinophils % 0.1 % (0.00-10.9); Hemoglobin 14.1 GM/DL (14.0-18.0); Immature Granulocytes % 0.6 %; Immature Granulocytes Absolute 0.13 #; Lymphocytes # 2.2 10*3/uL (1.4-4.0); Lymphocytes % 10.8 % (21.2-54.2); Mean Corpuscular HGB Conc 32.8 GM/DL (32-36); Mean Corpuscular Volume 99.3 FL (87-102); Mean Platelet Volume 9.5 FL (9.6-12.0); Monocytes # 1.5 10*3/uL (0.11-0.8); Monocytes % 7.4 % (1.7-12.7); Neutrophils % 80.8 % (38.7-73.9); Platelet Count 399 T/CUMM (130-400); Red Blood Count 4.33 MC/CUMM (3.8-5.5); Red Cell Distribution Width 16.6 % (9.3-17.3); White Blood Count 20.1 T/CUMM (4-12)
[2022-08-04] MEDS ORDERED: MAGNESIUM SULF RIDER 4 GM/100 ML PREMIX IV PRN (06:22)
[2022-08-04] MEDS ORDERED: MAGNESIUM SULF RIDER 2 GM/50 ML PREMIX IV PRN (06:22)
[2022-08-04 06:28] LABS: Calcium 8.4 MG/DL (8.5-10.1); Osmolality,Calculated 277.8 MOS/KG (273-304); Potassium 4.7 MMOL/L (3.5-5.1)
[2022-08-04 06:34] LABS: Eosinophils 1 % (0-10); Lymphocytes 9 % (20-55); Platelet Estimate Adequate; Total Cells Counted 100
[2022-08-04] MEDS: PARoxetine 20 MG TABLET PO SCH (09:11)
[2022-08-04] MEDS: buPROPion XL 150 MG TABLET PO SCH (09:12)
[2022-08-04] MEDS: MULTIVITAMIN (CENTRUM) TABLET PO SCH (09:12)
[2022-08-04] MEDS: metOLazone 5 MG TABLET PO SCH (09:12)
[2022-08-04] MEDS: PANTOPRAZOLE 40 MG TABLET PO SCH (09:12)
[2022-08-04] MEDS: SACUBITRIL/VALSARTAN 49-51 MG TABLET PO SCH (09:12)
[2022-08-04] MEDS: POTASSIUM CHLORIDE 20 MEQ TABLET PO SCH (09:12)
[2022-08-04] MEDS: SODIUM CHLORIDE 0.9% 1,000 ML IV SCH ×2 (09:13→20:30)
[2022-08-04] MEDS: BUDESONIDE/FORMOTEROL 80-4.5 INHALER 6.9 GM INH SCH ×2 (09:21→20:32)
[2022-08-04] MEDS: CIPROFLOXACIN INJ 400 MG/200 ML PREMIX IV SCH ×2 (11:12→20:27)
[2022-08-04] MEDS: ACETAMINOPHEN 325 MG TABLET PO PRN ×2 (11:50→20:26)
[2022-08-04] MEDS: METOPROLOL TARTRATE 25 MG TABLET PO SCH ×2 (13:16→20:27)
[2022-08-04] MEDS: METOPROLOL TARTRATE 5 MG/5 ML VIAL IV SCH ×3 (13:25→13:49)
[2022-08-04] MEDS: LINEZOLID INJ 600 MG/300 ML PREMIX IV SCH (13:58)
[2022-08-04] MEDS: oxyCODONE/ACETAMINOPHEN 5-325 MG TABLET PO PRN ×2 (16:16→23:38)
[2022-08-04] MEDS: TAMSULOSIN 0.4 MG CAPSULE PO SCH (20:27)
[2022-08-04] MEDS: ATORVASTATIN 40 MG TABLET PO SCH (20:27)
[2022-08-05] MEDS: SODIUM CHLORIDE 0.9% 1,000 ML IV SCH ×3 (01:02→20:23)
[2022-08-05] MEDS: LINEZOLID INJ 600 MG/300 ML PREMIX IV SCH ×2 (01:36→13:28)
[2022-08-05] MEDS: HYDROmorphone 1 MG/1 ML SYRINGE IV PRN ×4 (04:54→20:20)
[2022-08-05] MEDS: oxyCODONE/ACETAMINOPHEN 5-325 MG TABLET PO PRN (06:21)
[2022-08-05 07:19] LABS: Basophils # 0.1 10*3/uL (0.0-0.2); Basophils % 0.3 % (0.0-0.8); Eosinophils % 0.1 % (0.00-10.9); Hemoglobin 13.6 GM/DL (14.0-18.0); Immature Granulocytes % 0.7 %; Immature Granulocytes Absolute 0.15 #; Lymphocytes # 1.9 10*3/uL (1.4-4.0); Lymphocytes % 8.3 % (21.2-54.2); Mean Corpuscular HGB Conc 33.2 GM/DL (32-36); Mean Corpuscular Volume 99.3 FL (87-102); Mean Platelet Volume 9.4 FL (9.6-12.0); Monocytes # 2.3 10*3/uL (0.11-0.8); Monocytes % 10.1 % (1.7-12.7); Neutrophils % 80.5 % (38.7-73.9); Platelet Count 363 T/CUMM (130-400); Red Blood Count 4.13 MC/CUMM (3.8-5.5); Red Cell Distribution Width 16.6 % (9.3-17.3); White Blood Count 22.5 T/CUMM (4-12)
[2022-08-05 07:35] LABS: Albumin 2.3 G/DL (3.4-5.0); Bilirubin,Total 1.2 MG/DL (0.20-1.00); Calcium 8.6 MG/DL (8.5-10.1); Osmolality,Calculated 280.8 MOS/KG (273-304); Potassium 4.5 MMOL/L (3.5-5.1); Total Protein 6.3 G/DL (6.4-8.2)
[2022-08-05 08:11] LABS: Band Neutrophils 3 % (0-10); Lymphocytes 10 % (20-55); Total Cells Counted 100
[2022-08-05 08:12] LABS: Macrocytosis Slight; Microcytosis Slight
[2022-08-05] MEDS: POTASSIUM CHLORIDE 20 MEQ TABLET PO SCH (08:19)
[2022-08-05] MEDS: PARoxetine 20 MG TABLET PO SCH (08:19)
[2022-08-05] MEDS: MULTIVITAMIN (CENTRUM) TABLET PO SCH (08:19)
[2022-08-05] MEDS: METOPROLOL TARTRATE 25 MG TABLET PO SCH ×2 (08:19→20:21)
[2022-08-05] MEDS: buPROPion XL 150 MG TABLET PO SCH (08:19)
[2022-08-05] MEDS: BUDESONIDE/FORMOTEROL 80-4.5 INHALER 6.9 GM INH SCH ×2 (08:20→20:21)
[2022-08-05] MEDS: CIPROFLOXACIN INJ 400 MG/200 ML PREMIX IV SCH ×2 (08:20→20:22)
[2022-08-05] MEDS: PANTOPRAZOLE 40 MG TABLET PO SCH (08:20)
[2022-08-05] MEDS: SODIUM CHLORIDE 0.45% 1,000 ML IV SCH (09:45)
[2022-08-05] MEDS: SODIUM CHLOR 0.9% KCL 20 MEQ 20 MEQ/1,000 ML BAG IV SCH ×2 (09:45→09:46)
[2022-08-05] MEDS ORDERED: diphenhydrAMINE 50 MG/1 ML VIAL IV ONE (12:14)
[2022-08-05] MEDS ORDERED: methylPREDNISolone SOD SUC 125 MG/2 ML VIAL IV ONE (12:14)
[2022-08-05] MEDS: TAMSULOSIN 0.4 MG CAPSULE PO SCH (20:21)
[2022-08-05] MEDS: ATORVASTATIN 40 MG TABLET PO SCH (20:21)
[2022-08-06] MEDS: LINEZOLID INJ 600 MG/300 ML PREMIX IV SCH ×2 (01:52→14:15)
[2022-08-06] MEDS: oxyCODONE/ACETAMINOPHEN 5-325 MG TABLET PO PRN (03:54)
[2022-08-06 06:26] LABS: Basophils % 0.1 % (0.0-0.8); Hemoglobin 13.6 GM/DL (14.0-18.0); Immature Granulocytes % 0.8 %; Immature Granulocytes Absolute 0.21 #; Lymphocytes # 1.5 10*3/uL (1.4-4.0); Lymphocytes % 5.6 % (21.2-54.2); Mean Corpuscular HGB Conc 33.2 GM/DL (32-36); Mean Platelet Volume 10.2 FL (9.6-12.0); Monocytes # 1.6 10*3/uL (0.11-0.8); Monocytes % 5.9 % (1.7-12.7); Neutrophils % 87.6 % (38.7-73.9); Platelet Count 366 T/CUMM (130-400); Red Blood Count 4.14 MC/CUMM (3.8-5.5); Red Cell Distribution Width 16.3 % (9.3-17.3); White Blood Count 26.4 T/CUMM (4-12)
[2022-08-06] MEDS: SODIUM CHLORIDE 0.9% 1,000 ML IV SCH ×2 (06:36→17:28)
[2022-08-06 06:59] LABS: Albumin 2.1 G/DL (3.4-5.0); Bilirubin,Total 0.7 MG/DL (0.20-1.00); Calcium 8.8 MG/DL (8.5-10.1); Osmolality,Calculated 291.4 MOS/KG (273-304); Total Protein 6.4 G/DL (6.4-8.2)
[2022-08-06 07:41] LABS: Anisocytosis 1+; Band Neutrophils 10 % (0-10); Burr Cells Few; Lymphocytes 6 % (20-55); Macrocytosis 1+; Platelet Estimate Normal; Total Cells Counted 100
[2022-08-06] MEDS: POTASSIUM CHLORIDE 20 MEQ TABLET PO SCH (09:10)
[2022-08-06] MEDS: PARoxetine 20 MG TABLET PO SCH (09:11)
[2022-08-06] MEDS: MULTIVITAMIN (CENTRUM) TABLET PO SCH (09:11)
[2022-08-06] MEDS: PANTOPRAZOLE 40 MG TABLET PO SCH (09:12)
[2022-08-06] MEDS: BUDESONIDE/FORMOTEROL 80-4.5 INHALER 6.9 GM INH SCH ×2 (09:12→20:14)
[2022-08-06] MEDS: METOPROLOL TARTRATE 25 MG TABLET PO SCH ×2 (09:12→20:13)
[2022-08-06] MEDS: metOLazone 5 MG TABLET PO SCH (09:17)
[2022-08-06] MEDS: buPROPion XL 150 MG TABLET PO SCH (09:18)
[2022-08-06] MEDS: CIPROFLOXACIN INJ 400 MG/200 ML PREMIX IV SCH (09:18)
[2022-08-06] MEDS ORDERED: methylPREDNISolone SOD SUC 125 MG/2 ML VIAL IV ONE (15:33)
[2022-08-06] MEDS ORDERED: diphenhydrAMINE 50 MG/1 ML VIAL IV ONE (15:38)
[2022-08-06] MEDS: HYDROmorphone 1 MG/1 ML SYRINGE IV PRN ×3 (17:17→22:49)
[2022-08-06] MEDS: TAMSULOSIN 0.4 MG CAPSULE PO SCH (20:13)
[2022-08-06] MEDS: ATORVASTATIN 40 MG TABLET PO SCH (20:13)
[2022-08-07] MEDS: HYDROmorphone 1 MG/1 ML SYRINGE IV PRN ×5 (01:56→21:24)
[2022-08-07] MEDS: LINEZOLID INJ 600 MG/300 ML PREMIX IV SCH ×2 (01:56→14:00)
[2022-08-07 05:26] LABS: Basophils % 0.1 % (0.0-0.8); Hematocrit 39.9 VOL% (42.0-52.0); Hemoglobin 13.7 GM/DL (14.0-18.0); Immature Granulocytes % 0.8 %; Immature Granulocytes Absolute 0.13 #; Lymphocytes # 1.2 10*3/uL (1.4-4.0); Lymphocytes % 7.2 % (21.2-54.2); Mean Corpuscular HGB Conc 34.3 GM/DL (32-36); Mean Corpuscular Volume 97.1 FL (87-102); Mean Platelet Volume 10.4 FL (9.6-12.0); Monocytes # 0.5 10*3/uL (0.11-0.8); Monocytes % 2.7 % (1.7-12.7); NRBC # 0.09 10*3/uL; Neutrophils % 89.2 % (38.7-73.9); Platelet Count 410 T/CUMM (130-400); Red Blood Count 4.11 MC/CUMM (3.8-5.5); Red Cell Distribution Width 16.2 % (9.3-17.3); White Blood Count 16.8 T/CUMM (4-12)
[2022-08-07 05:55] LABS: Bilirubin,Total 0.5 MG/DL (0.20-1.00); Calcium 8.8 MG/DL (8.5-10.1); Osmolality,Calculated 300.4 MOS/KG (273-304); Potassium 4.2 MMOL/L (3.5-5.1); Total Protein 6.2 G/DL (6.4-8.2)
[2022-08-07] MEDS: SODIUM CHLORIDE 0.9% 1,000 ML IV SCH ×3 (07:35→11:35)
[2022-08-07] MEDS: POTASSIUM CHLORIDE 20 MEQ TABLET PO SCH (08:36)
[2022-08-07] MEDS: PANTOPRAZOLE 40 MG TABLET PO SCH (08:36)
[2022-08-07] MEDS: buPROPion XL 150 MG TABLET PO SCH (08:36)
[2022-08-07] MEDS: MULTIVITAMIN (CENTRUM) TABLET PO SCH (08:36)
[2022-08-07] MEDS: metOLazone 5 MG TABLET PO SCH (08:36)
[2022-08-07] MEDS: BUDESONIDE/FORMOTEROL 80-4.5 INHALER 6.9 GM INH SCH ×2 (08:37→21:27)
[2022-08-07] MEDS: CIPROFLOXACIN INJ 400 MG/200 ML PREMIX IV SCH (08:37)
[2022-08-07] MEDS: METOPROLOL TARTRATE 25 MG TABLET PO SCH ×2 (08:37→21:25)
[2022-08-07] MEDS: PARoxetine 10 MG TABLET PO SCH (08:46)
[2022-08-07] MEDS ORDERED: PARoxetine 20 MG TABLET PO SCH (09:00)
[2022-08-07] MEDS ORDERED: PARoxetine 10 MG TABLET PO SCH (09:00)
[2022-08-07] MEDS: TAMSULOSIN 0.4 MG CAPSULE PO SCH (21:25)
[2022-08-07] MEDS: predniSONE 20 MG TABLET PO SCH (21:25)
[2022-08-07] MEDS: ATORVASTATIN 40 MG TABLET PO SCH (21:25)
[2022-08-08] MEDS: HYDROmorphone 1 MG/1 ML SYRINGE IV PRN ×9 (01:19→23:59)
[2022-08-08] MEDS: LINEZOLID INJ 600 MG/300 ML PREMIX IV SCH ×2 (01:21→13:48)
[2022-08-08 04:47] LABS: Basophils % 0.1 % (0.0-0.8); Hematocrit 42.7 VOL% (42.0-52.0); Hemoglobin 14.7 GM/DL (14.0-18.0); Immature Granulocytes % 0.9 %; Immature Granulocytes Absolute 0.16 #; Lymphocytes # 1.4 10*3/uL (1.4-4.0); Lymphocytes % 7.3 % (21.2-54.2); Mean Corpuscular HGB Conc 34.4 GM/DL (32-36); Mean Corpuscular Volume 96.8 FL (87-102); Mean Platelet Volume 10.1 FL (9.6-12.0); Monocytes # 0.9 10*3/uL (0.11-0.8); Monocytes % 5.1 % (1.7-12.7); NRBC # 0.16 10*3/uL; Neutrophils % 86.6 % (38.7-73.9); Platelet Count 440 T/CUMM (130-400); Red Blood Count 4.41 MC/CUMM (3.8-5.5); Red Cell Distribution Width 16.2 % (9.3-17.3); White Blood Count 18.6 T/CUMM (4-12)
[2022-08-08 05:07] LABS: Bilirubin,Total 0.4 MG/DL (0.20-1.00); Calcium 8.3 MG/DL (8.5-10.1); Osmolality,Calculated 297.5 MOS/KG (273-304); Potassium 4.3 MMOL/L (3.5-5.1); Total Protein 5.9 G/DL (6.4-8.2)
[2022-08-08] MEDS: MULTIVITAMIN (CENTRUM) TABLET PO SCH (08:45)
[2022-08-08] MEDS: PARoxetine 10 MG TABLET PO SCH (08:45)
[2022-08-08] MEDS: buPROPion XL 150 MG TABLET PO SCH (08:45)
[2022-08-08] MEDS: predniSONE 20 MG TABLET PO SCH ×2 (08:45→21:44)
[2022-08-08] MEDS: POTASSIUM CHLORIDE 20 MEQ TABLET PO SCH (08:45)
[2022-08-08] MEDS: PANTOPRAZOLE 40 MG TABLET PO SCH (08:46)
[2022-08-08] MEDS: CIPROFLOXACIN INJ 400 MG/200 ML PREMIX IV SCH ×2 (08:46→21:46)
[2022-08-08] MEDS: BUDESONIDE/FORMOTEROL 80-4.5 INHALER 6.9 GM INH SCH ×2 (08:46→21:47)
[2022-08-08] MEDS: metOLazone 5 MG TABLET PO SCH (08:46)
[2022-08-08] MEDS: METOPROLOL TARTRATE 25 MG TABLET PO SCH ×2 (08:46→21:45)
[2022-08-08] MEDS: SACUBITRIL/VALSARTAN 49-51 MG TABLET PO SCH ×2 (10:03→21:45)
[2022-08-08] MEDS: ATORVASTATIN 40 MG TABLET PO SCH (21:44)
[2022-08-08] MEDS: TAMSULOSIN 0.4 MG CAPSULE PO SCH (21:45)
[2022-08-09] MEDS: LINEZOLID INJ 600 MG/300 ML PREMIX IV SCH ×2 (02:49→13:04)
[2022-08-09] MEDS: HYDROmorphone 1 MG/1 ML SYRINGE IV PRN ×6 (02:59→23:24)
[2022-08-09 06:41] LABS: Basophils % 0.2 % (0.0-0.8); Hematocrit 43.3 VOL% (42.0-52.0); Hemoglobin 14.7 GM/DL (14.0-18.0); Immature Granulocytes % 1.2 %; Immature Granulocytes Absolute 0.15 #; Lymphocytes # 1.7 10*3/uL (1.4-4.0); Lymphocytes % 13.3 % (21.2-54.2); Mean Corpuscular HGB Conc 33.9 GM/DL (32-36); Mean Corpuscular Volume 97.3 FL (87-102); Monocytes # 0.8 10*3/uL (0.11-0.8); Neutrophils % 79.3 % (38.7-73.9); Platelet Count 430 T/CUMM (130-400); Red Blood Count 4.45 MC/CUMM (3.8-5.5); White Blood Count 12.6 T/CUMM (4-12)
[2022-08-09 07:02] LABS: Bilirubin,Total 0.7 MG/DL (0.20-1.00); Calcium 8.6 MG/DL (8.5-10.1); Osmolality,Calculated 294.5 MOS/KG (273-304); Potassium 4.5 MMOL/L (3.5-5.1); Total Protein 6.2 G/DL (6.4-8.2)
[2022-08-09] MEDS: CIPROFLOXACIN INJ 400 MG/200 ML PREMIX IV SCH ×2 (08:06→21:00)
[2022-08-09] MEDS: SACUBITRIL/VALSARTAN 49-51 MG TABLET PO SCH ×2 (08:07→21:00)
[2022-08-09] MEDS: METOPROLOL TARTRATE 25 MG TABLET PO SCH ×2 (08:08→20:59)
[2022-08-09] MEDS: metOLazone 5 MG TABLET PO SCH (08:08)
[2022-08-09] MEDS: oxyCODONE/ACETAMINOPHEN 5-325 MG TABLET PO PRN (08:08)
[2022-08-09] MEDS: PARoxetine 10 MG TABLET PO SCH (08:08)
[2022-08-09] MEDS: POTASSIUM CHLORIDE 20 MEQ TABLET PO SCH (08:08)
[2022-08-09] MEDS: OXYBUTYNIN 5 MG TABLET PO PRN ×2 (08:08)
[2022-08-09] MEDS: ASPIRIN EC 81 MG TABLET PO SCH (08:08)
[2022-08-09] MEDS: PANTOPRAZOLE 40 MG TABLET PO SCH (08:08)
[2022-08-09] MEDS: MULTIVITAMIN (CENTRUM) TABLET PO SCH (08:08)
[2022-08-09] MEDS: buPROPion XL 150 MG TABLET PO SCH (08:08)
[2022-08-09] MEDS: predniSONE 20 MG TABLET PO SCH ×2 (08:08→21:00)
[2022-08-09] MEDS: BUDESONIDE/FORMOTEROL 80-4.5 INHALER 6.9 GM INH SCH ×2 (08:09→21:00)
[2022-08-09] MEDS ORDERED: FUROSEMIDE 40 MG/4 ML VIAL IV ONE (12:30)
[2022-08-09] MEDS: RIVAROXABAN 15 MG TABLET PO SCH (17:03)
[2022-08-09] MEDS: TAMSULOSIN 0.4 MG CAPSULE PO SCH (20:59)
[2022-08-09] MEDS: ATORVASTATIN 40 MG TABLET PO SCH (21:00)
[2022-08-10] MEDS: HYDROmorphone 1 MG/1 ML SYRINGE IV PRN ×9 (01:35→22:03)
[2022-08-10] MEDS: LINEZOLID INJ 600 MG/300 ML PREMIX IV SCH ×2 (01:37→14:04)
[2022-08-10 05:32] LABS: Basophils % 0.2 % (0.0-0.8); Hematocrit 45.9 VOL% (42.0-52.0); Hemoglobin 15.7 GM/DL (14.0-18.0); Immature Granulocytes % 1.6 %; Lymphocytes # 1.8 10*3/uL (1.4-4.0); Lymphocytes % 14.1 % (21.2-54.2); Mean Corpuscular HGB Conc 34.2 GM/DL (32-36); Mean Corpuscular Volume 95.6 FL (87-102); Mean Platelet Volume 9.8 FL (9.6-12.0); Monocytes # 0.9 10*3/uL (0.11-0.8); NRBC # 0.05 10*3/uL; Neutrophils % 77.1 % (38.7-73.9); Platelet Count 458 T/CUMM (130-400); Red Cell Distribution Width 15.9 % (9.3-17.3); White Blood Count 12.5 T/CUMM (4-12)
[2022-08-10 06:06] LABS: Albumin 2.5 G/DL (3.4-5.0); Bilirubin,Total 0.8 MG/DL (0.20-1.00); Calcium 8.8 MG/DL (8.5-10.1); Potassium 4.2 MMOL/L (3.5-5.1)
[2022-08-10] MEDS: PANTOPRAZOLE 40 MG TABLET PO SCH (08:45)
[2022-08-10] MEDS: ASPIRIN EC 81 MG TABLET PO SCH (08:45)
[2022-08-10] MEDS: METOPROLOL TARTRATE 25 MG TABLET PO SCH ×2 (08:45→20:54)
[2022-08-10] MEDS: predniSONE 20 MG TABLET PO SCH ×2 (08:45→20:54)
[2022-08-10] MEDS: POTASSIUM CHLORIDE 20 MEQ TABLET PO SCH (08:46)
[2022-08-10] MEDS: metOLazone 5 MG TABLET PO SCH (08:46)
[2022-08-10] MEDS: PARoxetine 10 MG TABLET PO SCH (08:46)
[2022-08-10] MEDS: SACUBITRIL/VALSARTAN 49-51 MG TABLET PO SCH ×2 (08:46→20:54)
[2022-08-10] MEDS: buPROPion XL 150 MG TABLET PO SCH (08:46)
[2022-08-10] MEDS: MULTIVITAMIN (CENTRUM) TABLET PO SCH (08:46)
[2022-08-10] MEDS: CIPROFLOXACIN INJ 400 MG/200 ML PREMIX IV SCH ×2 (08:47→20:54)
[2022-08-10] MEDS: BUDESONIDE/FORMOTEROL 80-4.5 INHALER 6.9 GM INH SCH ×2 (08:50→20:56)
[2022-08-10] MEDS: oxyCODONE/ACETAMINOPHEN 5-325 MG TABLET PO PRN ×3 (09:33→20:16)
[2022-08-10] MEDS: RIVAROXABAN 15 MG TABLET PO SCH (16:35)
[2022-08-10] MEDS: TAMSULOSIN 0.4 MG CAPSULE PO SCH (20:54)
[2022-08-10] MEDS: ATORVASTATIN 40 MG TABLET PO SCH (20:55)
[2022-08-11] MEDS: oxyCODONE/ACETAMINOPHEN 5-325 MG TABLET PO PRN ×4 (00:21→13:56)
[2022-08-11] MEDS: LINEZOLID INJ 600 MG/300 ML PREMIX IV SCH ×2 (01:32→13:56)
[2022-08-11 05:27] LABS: Basophils % 0.2 % (0.0-0.8); Hematocrit 44.2 VOL% (42.0-52.0); Hemoglobin 14.9 GM/DL (14.0-18.0); Immature Granulocytes % 1.1 %; Immature Granulocytes Absolute 0.14 #; Lymphocytes # 1.8 10*3/uL (1.4-4.0); Lymphocytes % 14.3 % (21.2-54.2); Mean Corpuscular HGB Conc 33.7 GM/DL (32-36); Mean Corpuscular Volume 95.9 FL (87-102); Mean Platelet Volume 9.6 FL (9.6-12.0); Monocytes # 0.9 10*3/uL (0.11-0.8); Monocytes % 6.8 % (1.7-12.7); NRBC # 0.08 10*3/uL; Neutrophils % 77.6 % (38.7-73.9); Platelet Count 420 T/CUMM (130-400); Red Blood Count 4.61 MC/CUMM (3.8-5.5); Red Cell Distribution Width 15.7 % (9.3-17.3); White Blood Count 12.5 T/CUMM (4-12)
[2022-08-11 06:02] LABS: Albumin 2.3 G/DL (3.4-5.0); Bilirubin,Total 0.6 MG/DL (0.20-1.00); Calcium 8.4 MG/DL (8.5-10.1); Potassium 4.4 MMOL/L (3.5-5.1); Total Protein 6.6 G/DL (6.4-8.2)
[2022-08-11] MEDS ORDERED: cefTRIAXone 1,000 MG in SODIUM CHLORIDE 0.9% 100 ML IV ONE (06:10)
[2022-08-11] MEDS ORDERED: LACTATED RINGERS 1,000 ML IV SCH (07:00)
[2022-08-11] MEDS ORDERED: fentaNYL 100 MCG/2 ML VIAL ONE (07:13)
[2022-08-11] MEDS ORDERED: MIDAZOLAM 2 MG/2 ML VIAL ONE (07:13)
[2022-08-11] MEDS ORDERED: LIDOCAINE 2% 5 ML VIAL ONE (07:30)
[2022-08-11] MEDS ORDERED: SEVOFLURANE 1 UNIT/15 MINUTE INH ONE (07:30)
[2022-08-11] MEDS ORDERED: ONDANSETRON 4 MG/2 ML VIAL ONE (07:30)
[2022-08-11] MEDS ORDERED: propofoL 200 MG/20 ML VIAL IV ONE ×2 (07:30)
[2022-08-11] MEDS: METOPROLOL TARTRATE 25 MG TABLET PO SCH ×2 (09:06→20:36)
[2022-08-11] MEDS: PARoxetine 10 MG TABLET PO SCH (09:06)
[2022-08-11] MEDS: ASPIRIN EC 81 MG TABLET PO SCH (09:07)
[2022-08-11] MEDS: MULTIVITAMIN (CENTRUM) TABLET PO SCH (09:07)
[2022-08-11] MEDS: predniSONE 20 MG TABLET PO SCH ×2 (09:07→20:36)
[2022-08-11] MEDS: POTASSIUM CHLORIDE 20 MEQ TABLET PO SCH (09:07)
[2022-08-11] MEDS: PANTOPRAZOLE 40 MG TABLET PO SCH (09:07)
[2022-08-11] MEDS: SACUBITRIL/VALSARTAN 49-51 MG TABLET PO SCH ×2 (09:07→20:36)
[2022-08-11] MEDS: buPROPion XL 150 MG TABLET PO SCH (09:07)
[2022-08-11] MEDS: BUDESONIDE/FORMOTEROL 80-4.5 INHALER 6.9 GM INH SCH ×2 (09:25→20:36)
[2022-08-11] MEDS: CIPROFLOXACIN INJ 400 MG/200 ML PREMIX IV SCH ×2 (09:36→20:41)
[2022-08-11] MEDS: metOLazone 5 MG TABLET PO SCH (09:36)
[2022-08-11 12:41] LABS: Stone Source Kidney
[2022-08-11] MEDS: OXYBUTYNIN 5 MG TABLET PO PRN ×2 (15:27→19:27)
[2022-08-11] MEDS: RIVAROXABAN 15 MG TABLET PO SCH (17:06)
[2022-08-11] MEDS: HYDROmorphone 1 MG/1 ML SYRINGE IV PRN ×2 (18:39→23:00)
[2022-08-11] MEDS: TAMSULOSIN 0.4 MG CAPSULE PO SCH (20:36)
[2022-08-11] MEDS: ATORVASTATIN 40 MG TABLET PO SCH (20:36)
[2022-08-12] MEDS: OXYBUTYNIN 5 MG TABLET PO PRN (01:24)
[2022-08-12] MEDS: oxyCODONE/ACETAMINOPHEN 5-325 MG TABLET PO PRN (01:24)
[2022-08-12] MEDS: HYDROmorphone 1 MG/1 ML SYRINGE IV PRN ×2 (03:26→14:07)
[2022-08-12 05:43] LABS: Basophils % 0.1 % (0.0-0.8); Hematocrit 43.5 VOL% (42.0-52.0); Hemoglobin 15.1 GM/DL (14.0-18.0); Immature Granulocytes % 1.1 %; Lymphocytes # 2.1 10*3/uL (1.4-4.0); Lymphocytes % 11.9 % (21.2-54.2); Mean Corpuscular HGB Conc 34.7 GM/DL (32-36); Mean Corpuscular Volume 96.9 FL (87-102); Mean Platelet Volume 9.7 FL (9.6-12.0); Monocytes % 5.9 % (1.7-12.7); NRBC # 0.12 10*3/uL; Platelet Count 450 T/CUMM (130-400); Red Blood Count 4.49 MC/CUMM (3.8-5.5); Red Cell Distribution Width 15.9 % (9.3-17.3); White Blood Count 17.6 T/CUMM (4-12)
[2022-08-12 06:01] LABS: Albumin 2.7 G/DL (3.4-5.0); Bilirubin,Total 0.6 MG/DL (0.20-1.00); Calcium 8.7 MG/DL (8.5-10.1); Osmolality,Calculated 296.1 MOS/KG (273-304); Potassium 4.3 MMOL/L (3.5-5.1); Total Protein 6.9 G/DL (6.4-8.2)
[2022-08-12] MEDS: MULTIVITAMIN (CENTRUM) TABLET PO SCH (08:28)
[2022-08-12] MEDS: SACUBITRIL/VALSARTAN 49-51 MG TABLET PO SCH (08:28)
[2022-08-12] MEDS: PARoxetine 10 MG TABLET PO SCH (08:28)
[2022-08-12] MEDS: ASPIRIN EC 81 MG TABLET PO SCH (08:28)
[2022-08-12] MEDS: buPROPion XL 150 MG TABLET PO SCH (08:29)
[2022-08-12] MEDS: POTASSIUM CHLORIDE 20 MEQ TABLET PO SCH (08:29)
[2022-08-12] MEDS: METOPROLOL TARTRATE 25 MG TABLET PO SCH (08:29)
[2022-08-12] MEDS: predniSONE 20 MG TABLET PO SCH (08:29)
[2022-08-12] MEDS: PANTOPRAZOLE 40 MG TABLET PO SCH (08:29)
[2022-08-12] MEDS: CIPROFLOXACIN INJ 400 MG/200 ML PREMIX IV SCH (08:30)
[2022-08-12] MEDS: BUDESONIDE/FORMOTEROL 80-4.5 INHALER 6.9 GM INH SCH (08:31)
[2022-08-12] MEDS: metOLazone 5 MG TABLET PO SCH (08:41)
[2022-08-12] MEDS ORDERED: LINEZOLID INJ 600 MG/300 ML PREMIX IV SCH (10:00)
[2022-08-12 12:03] VITALS: BP 95/66
[2022-08-12] MEDS: RIVAROXABAN 15 MG TABLET PO SCH (17:00)
== END 2022-08-12 17:25 | disposition home or self-care (01) | DRG 854 ==
LOC: N.ED 15:35 → N.EDINP 20:50 → SUATTDRO 20:50 → N.3E 23:40
PROVIDERS: ADMIT Hospitalist; ATTEND Internal Medicine